=== PATIENT | female | born 1950 | race Caucasian/White ===

== ENCOUNTER 2020-08-29 23:18 | Emergency (ER) | payer MEDICARE, SELFPAY ==
[2020-08-29 23:20] VITALS: BP 207/83; PULSE 74; RESP 17; TEMP 37.1; O2SAT 92; BMI 46.9
--- NOTE | 2020-08-29 23:31 | ED_ITS ---
HPI - Fall General: Chief Complaint: Fall Stated Complaint: FALL Time Seen by Provider: 08/29/20 23:29 History of Present Illness: HPI Narrative: Patient is a 69-year-old female who comes to the ED via EMS after having a fall. Patient says she was walking in h er house and tripped over some carpet. She fell and her right knee hit the ground and she caught herself with her hands. Denies any head injury, loss of consciousness or headache. Denies any use of blood thinners. She has a skin tear on her forearm. Right knee some swelling and bruising present. She had pain initially after the fall, but only has very mild pain in right knee currently. She did not take any Tylenol or ibuprofen before coming to the ED. She says she is able to bend knee without any pain. She is up-to-date on her tetanus and got within the last year. Patient did say she has chronic right knee problems and is going to see an orthopedic doctor to get a steroid injection into right knee in the next couple days. Associated symptoms-after fall: Denies abdominal pain, chest pain, headache(s), hematuria or neck pain Review of Systems Const: Denies: fever(s), chills or fatigue Eyes: Denies: change in vision or eye discomfort ENMT: Denies: throat pain, odynophagia, nasal discharge or nasal congestion Card: Denies: chest pain, palpitations, edema, swelling of feet/ankles, dyspnea on exertion or orthopnea Resp: Denies: dyspnea, productive cough or non-productive cough GI: Denies: abdominal pain, nausea, vomiting, diarrhea, constipation or hematochezia : Denies: flank pain, dysuria or hematuria Musc: Reports: extremity pain (mild right knee pain) and extremity swelling (right knee); Denies: neck pain or back pain Skin/Breast: Reports: new lesions (skin tear on right forearm); Denies: rash Neuro: Denies: headache(s), numbness in extremities or weakness in extremities PFSH ED PFSH: Family History Other Cancer Social History Smoking and tobacco status: former smoker Quit status (tobacco): has quit using tobacco Alcohol intake: current Alcohol intake frequency: holidays/special occasions only History of recent travel: No Current gender identity: Female Female Reproductive History: Spontaneous abortions: No Physical Exam Const: COMMON NORMALS: no acute distress, patient oriented x3, healthy appearing and alert GENERAL APPEARANCE: cooperative and comfortable HENMT: COMMON NORMALS: normocephalic HEAD & SCALP: normocephalic MOUTH: Normal oral and palatal mucosa present THROAT: posterior oropharynx normal and uvula midline Eye: COMMON NORMALS: Equal, round and reactive pupils present PUPIL: Yes Equal, round and reactive pupils present Neck/C-Spine: COMMON NORMALS: supple GENERAL: Yes normal visual inspection Resp: COMMON NORMALS: normal respiratory effort, No retractions, No use of accessory muscles and clear to auscultation bilaterally AUSCULTATION: clear to auscultation bilaterally Cardio: COMMON NORMALS: regular rate, regular rhythm, S1 normal heart sound present, S2 normal heart sound present, No gallops present (Cardio), No clicks present (Cardio), No murmurs present (Cardio) and Peripheral pulses 2+ throughout RATE: regular rate RHYTHM: regular rhythm HEART SOUNDS: S1 normal heart sound present and S2 normal heart sound present PERIPHERAL PULSES: Peripheral pulses 2+ throughout GI: COMMON NORMALS: Normal to inspection, nondistended, normoactive bowel sounds present, Soft to palpation, non-tender and no masses PALPATION: Yes Soft to palpation : COMMON NORMALS: Yes no CVA tenderness BLADDER/KIDNEY EXAM: Yes no CVA tenderness Back/Pelvis: COMMON NORMALS: no CVA tenderness Extremity: NARRATIVE EXTREMITY EXAM: Patient has mild edema over right knee along with ecchymosis. Mild tenderness upon palpation as well over anterior aspect of right knee. Range of motion full. Neurovascular intact. Pedal pulse 2+. GENERAL: Yes normal exam except as noted Neuro: COMMON NORMALS: patient oriented x3 and moves all extremities SENSORIUM/ORIENTATION: Yes alert Skin: NARRATIVE SKIN EXAM: Patient has a superficial skin tear on right forearm that is not actively bleeding. Course Vital Signs: Vital signs: Vital Signs Temperature 98.8 F 08/29/20 23:20 Pulse Rate 74 08/29/20 23:20 Respiratory Rate 17 08/29/20 23:20 Blood Pressure 207/83 08/29/20 23:20 Pulse Oximetry 92 08/29/20 23:20 MDM - Fall MDM Narrative: Medical decision making narrative: Patient is a 69-year-old female comes to the ED via EMS after having a fall. Patient has a history of chronic right knee pain and is currently working with an orthopedic doctor to get some injections in her right knee within the next week. She is complaining of having some right knee pain and a skin tear to her right forearm. Denies any head trauma or loss of consciousness. Patient is not on any blood thinners. Physical exam shows some tenderness, ecchymosis and swelling around the right knee. Full range of motion without pain. Neurovascular tact. X-ray of right knee showed no acute fractures or findings, but did notate some chronic patellar enthesophytes. Patient was diagnosed with a contusion and ecchymosis of the right knee and skin tear of the right forearm. Skin tear was irrigated extensively with normal saline, bacitracin and bandage was placed. She was told to rest, ice and elevate right knee. Take Tylenol or ibuprofen for pain. Return ED precautions given. Follow-up with PCP in 7 to 10 days. Patient understood and agreed with plan. Imaging Data^: Xray Ortho: Attestation: I personally reviewed and interpreted this imaging study as follows: Radiologist's impression: [place] [address] XRay Report Signed Patient: Carli Brown Unit #: [id number] : [id number] Age/Sex: 69 / F ADM Date: 08/29/20 Loc: ER Room/Bed: Attending Dr: Ordering Provider/Ordering MD: Erasto Padron Date of Service: 08/29/20 Procedure(s): XR knee RT 3V* [id number] Accession Number(s): [id number] Report Number: [id number] PROCEDURE INFORMATION: Exam: XR Right Knee Exam date and time: 08/29/2020 11:54 PM Age: 69 years old Clinical indication: Injury or trauma; Fall; Blunt trauma; Knee; Right; Additional info: Fall and hit knee-bruising TECHNIQUE: Imaging protocol: XR Right knee. Views: 3 views. COMPARISON: No relevant prior studies available. FINDINGS: No acute fracture or dislocation is demonstrated. There are prominent patellar enthesophytes anteriorly, extending superiorly and inferiorly. XR/XR knee RT 3V* [id number] IMPRESSION: No acute osseous abnormality is demonstrated. There are prominent patellar enthesophytes anteriorly, extending superiorly and inferiorly. Dictated By: Roslyn Wheeler MD Signed By: Roslyn Wheeler MD Signed Date/Time: 08/30/2015 DD/ Discharge Plan Discharge Patient Disposition: Home Clinical Impression: Ecchymosis, Skin tear Contusion Qualifiers: Encounter type: initial encounter Contusion area: knee Laterality: right Qualified Code(s): S80.01XA - Contusion of right knee, initial encounter Condition: Stable Prescriptions: No Action Januvia 100 mg tablet 100 mg PO DAILY RF: 0 fluticasone propion-salmeterol [Advair Diskus] 500-50 mcg/dose blister with device 1 inh INHALATION BID RF: 0 ibuprofen 800 mg tablet 800 mg PO Q8H RF: 0 Spiriva Respimat 1.25 mcg/actuation mist 2 puff INHALATION DAILY RF: 0 benazepril-hydrochlorothiazide 20-25 mg tablet 1 tab PO DAILY RF: 0 furosemide 20 mg tablet 20 mg PO DAILY Qty: 3 RF: 0 Discharge Orders: Discharge Order (Routine); Ordered 08/30/20 Ordered By: Erasto Padron Discharge Diet: Regular Discharge Activity: Increase activity as tolerated Patient Instructions: Contusion in Adults (ED) Activity Restrictions/Additional Instructions: Follow-up with medical provider as directed in 7-10 days. Take ibuprofen for pain and inflammation. Rest, ice and elevate right knee. Clean, apply triple antibiotic ointment and bandage skin tear on right forearm daily. Return to the ER or your medical provider if condition worsens. Please read and understand discharge instructions. If any questions, please ask. Discharge Date/Time: 08/30/20 00:41 Coding Level of Care Code ED Finishing And Shipping Supervisor for Phillip Fwd Exam Comprehensive
--- NOTE | 2020-08-29 23:36 | XRR_ITS ---
PROCEDURE INFORMATION: Exam: XR Right Knee Exam date and time: 08/29/2020 11:54 PM Age: 69 years old Clinical indication: Injury or trauma; Fall; Blunt trauma; Knee; Right; Additional info: Fall and hit knee-bruising TECHNIQUE: Imaging protocol: XR Right knee. Views: 3 views. COMPARISON: No relevant prior studies available. FINDINGS: No acute fracture or dislocation is demonstrated. There are prominent patellar enthesophytes anteriorly, extending superiorly and inferiorly. XR/XR knee RT 3V* [id number] IMPRESSION: No acute osseous abnormality is demonstrated. There are prominent patellar enthesophytes anteriorly, extending superiorly and inferiorly.
[2020-08-29] MEDS: ibuprofen 600 mg Tablet PO (23:44)
== END 2020-08-30 00:41 | disposition home or self-care (01) ==
PROVIDERS: Emergency Provider Physician Assistant
DX: S80.01XA Contusion of right knee, initial encounter (principal); R58 Hemorrhage, not elsewhere classified; S51.811A Laceration without foreign body of right forearm, initial encounter; Z87.891 Personal history of nicotine dependence; W18.09XA Striking against other object with subsequent fall, initial encounter
CPT/HCPCS: 12345; 73562; 99281; 99283

== ENCOUNTER 2022-01-21 22:44 | Observation (INO) | payer MEDICARE, SELFPAY ==
[2022-01-21 22:44] VITALS: BP 178/68; PULSE 75; RESP 18; TEMP 36.7; O2SAT 96; BMI 51.8
--- NOTE | 2022-01-21 23:00 | XRR_ITS ---
PROCEDURE INFORMATION: Exam: XR Right Shoulder Exam date and time: 01/21/2022 11:00 PM Age: 71 years old Clinical indication: Injury or trauma; Fall; Blunt trauma (contusions or hematomas); Shoulder; Right; Additional info: Fall inj TECHNIQUE: Imaging protocol: XR Right shoulder. Views: 2 or more views. COMPARISON: No relevant prior studies available. FINDINGS: Bones/joints: Mild right acromioclavicular arthropathy. Nondisplaced oblique fracture of the proximal humeral shaft versus overlying fat plane. CT may be helpful for complete evaluation. Soft tissues: See Bones/joints finding. XR/XR shoulder RT min 2V* [id number] IMPRESSION: Nondisplaced oblique fracture of the proximal humeral shaft versus overlying fat plane. CT may be helpful for complete evaluation.
--- NOTE | 2022-01-21 23:00 | CTR_ITS ---
PROCEDURE INFORMATION: Exam: CT Head Without Contrast Exam date and time: 01/21/2022 11:00 PM Age: 71 years old Clinical indication: Injury or trauma; Fall; Blunt trauma (contusions or hematomas); Without loss of consciousness; Patient HX: Tripped on rug while walking; Additional info: Fall head inj TECHNIQUE: Imaging protocol: Computed tomography of the head without contrast. Radiation optimization: All CT scans at this facility use at least one of these dose optimization techniques: automated exposure control; mA and/or kV adjustment per patient size (includes targeted exams where dose is matched to clinical indication); or iterative reconstruction. COMPARISON: No relevant prior studies available. RADIATION DOSE METRICS: Total DLP (mGy-cm): 987.04 FINDINGS: Brain: Normal. No hemorrhage. Unremarkable white matter. No mass effect. Cerebral ventricles: No ventriculomegaly. Paranasal sinuses: Visualized sinuses are unremarkable. No fluid levels. Mastoid air cells: Visualized mastoid air cells are well aerated. Vasculature: Severe calcified intracranial atherosclerotic vessel disease. Bones/joints: Unremarkable. No acute fracture. Soft tissues: Unremarkable. CT/CT head wo con* [id number] IMPRESSION: No acute intracranial findings.
--- NOTE | 2022-01-21 23:00 | XRR_ITS ---
PROCEDURE INFORMATION: Exam: XR Left Knee Exam date and time: 01/21/2022 11:00 PM Age: 71 years old Clinical indication: Injury or trauma; Fall; Blunt trauma and laceration; Left; Patella or knee; Without foreign body; Additional info: Fall injury with lac TECHNIQUE: Imaging protocol: XR Left knee. Views: 3 views. COMPARISON: No relevant prior studies available. FINDINGS: Bones/joints: Normal. Soft tissues: Prominent soft tissue emphysema over the anterior medial knee and calf consistent with laceration/penetrating trauma. XR/XR knee LT 3V* [id number] IMPRESSION: Prominent soft tissue emphysema over the anterior medial knee and calf consistent with laceration/penetrating trauma.
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
[2022-01-21 23:10] VITALS: RESP 18; O2SAT 96
[2022-01-21] MEDS: fentaNYL 50 mcg/mL INJ 2mL IVP (23:10)
[2022-01-21 23:45] VITALS: RESP 18
[2022-01-21] MEDS: HYDROmorphone 1 mg/mL INJ 1 mL IVP (23:45)
[2022-01-22] VITALS (16 sets, daily range): BP systolic 123–181; BP diastolic 37–78; PULSE 70–88; RESP 14–22; TEMP 36.6–37; O2SAT 93–99; BMI 52.8
[2022-01-22] MEDS: neomycin-poly-bacitracin oint 0.9 gm Pkt 1 APPLIC TOPICAL (01:25)
--- NOTE | 2022-01-22 02:07 | XRR_ITS ---
PROCEDURE INFORMATION: Exam: XR Chest Exam date and time: 01/22/2022 2:07 AM Age: 71 years old Clinical indication: Injury or trauma; Fall; Blunt trauma (contusions or hematomas) TECHNIQUE: Imaging protocol: XR of the chest. Views: 1 view. COMPARISON: CR (CHEST, ) 01/21/2022 11:08 PM FINDINGS: Lungs: Unremarkable. No consolidation. Pleural spaces: Unremarkable. No pleural effusion. No pneumothorax. Heart/Mediastinum: Unremarkable. No cardiomegaly. Bones/joints: Moderate thoracic spondylosis. XR/XR chest 1V portable [id number] IMPRESSION: No acute findings.
--- NOTE | 2022-01-22 02:08 | ECG_ITS ---
[facility] Test Date: 2022-01-22 Pat Name: Carli Brown Department: Room: Gender: Female Building Code Administrator: : 1950 Requested By: Sam Maurer Order Number: [id number] Rosalie MD: Kavitha Mao M.D. Measurements Intervals [place] Rate: 76 P: 72 [place]: 167 QRS: 86 QRSD: 151 T: 45 QT: 430 QTc: 485 Interpretive Statements SINUS RHYTHM RIGHT BUNDLE BRANCH BLOCK [120+ ms QRS DURATION, UPRIGHT V1, 40+ ms S IN I/aVL/V4/V5/V6] No previous ECG available for comparison Electronically Signed On 01-22-2022 16:11:17 PRESIDENT by Kavitha Mao M.D. [id number]
[2022-01-22 02:42] LABS: Basophils # 0.1 10^3/uL (0.0-0.1); Basophils % 0.7 %; Eosinophils # 0.1 10^3/uL (0.0-0.8); Eosinophils % 0.4 %; Hematocrit 41.4 % (37.0-47.0); Hemoglobin 13.3 g/dL (11.5-15.3); Lymphocytes # 0.9 10^3/uL (0.8-4.8); Lymphocytes % 6.6 %; Mean Corpuscular HGB Conc 32.1 g/dL (30.0-36.0); Mean Corpuscular Hemoglobin 32.6 pg (28.0-34.0); Mean Corpuscular Volume 101.5 fl (81-99); Mean Platelet Volume 11.8 fL (7.4-10.4); Monocytes # 0.9 10^3/uL (0.2-0.9); Monocytes % 6.8 %; Neutrophils # 11.53 10^3/uL (1.8-7.7); Nucleated Red Blood Cells % 0 %; Platelet Count 185 10^3/cmm (130-400); Red Blood Count 4.08 10^6/uL (4.1-5.3); Red Cell Distribution Width 13.1 % (12.1-15.1); White Blood Count 13.6 10^3/uL (4.0-10.0)
[2022-01-22 02:59] LABS: Alanine Aminotransferase 21 U/L (0-33); Albumin Level 4.2 g/dL (3.5-5.2); Alkaline Phosphatase 66 IU/L (35-105); Aspartate Amino Transferase 21 U/L (0-32); Blood Urea Nitrogen 28 mg/dL (8-23); C Reactive Protein 11.1 mg/L (0.0-4.9); Calcium 8.9 mg/dL (8.5-10.5); Carbon Dioxide 32 mmol/L (22-29); Chloride 96 mmol/L (98-107); Creatine Phosphokinase 187 U/L (26-192); Glucose 245 mg/dL (65-115); Osmolality Calculated 302 mOsm/kg (285-295); Sodium 139 mmol/L (136-145); Total Bilirubin 0.4 mg/dL (0.15-1.2); Total Protein 7.2 g/dL (6.6-8.7)
[2022-01-22 03:02] LABS: Slide Review Slide Review Perform
[2022-01-22 03:06] LABS: Procalcitonin 0.11 ng/mL (0-0.5)
[2022-01-22] MEDS: HYDROmorphone 1 mg/mL INJ 1 mL IVP (03:35)
--- NOTE | 2022-01-22 05:37 | P.HP_ITS ---
Providers/Chief Complaint Admitting Physician: Melonie Gale MD Chief Complaint: fall r shoulder pain History of Present Illness Carli Brown is a 71 year old female with HTN, DM, COPD baseline 02 requirement 2-3lpm presenting to the ER with mechanical fall after her leg got caught in a rug as she was running to take nursing home at home from severe weather. She currently has a lacertaion over her left knee which has been sutured in the ER and also a right shoulder fracture. Reports head injury as well, however no reported LOC, seizures, vomiting, nausea. X rays show Nondisplaced oblique fracture of the proximal humeral shaft. Patient is currently i pain which is limiting her mobility and she does not feel safe returning home at this point to care for herself. Denies any chest pain, dyspnea, palpitations. Review of Systems General: Reports: 10 or more systems reviewed and unremarkable except in HPI and below Const: Denies: fever(s), chills or body aches Eyes: Denies: change in vision, blurry vision or photophobia ENMT: Reports: hoarseness; Denies: throat pain, enlarged tonsils, odynophagia or nasal congestion Card: Denies: chest pain, palpitations, irregular heart rhythm, edema, swelling of feet/ankles, lightheadedness, pre-syncope, dyspnea on exertion or orthopnea Resp: Denies: dyspnea, productive cough, non-productive cough, wheezing, stridor, pain on inspiration, change in phlegm color, hemoptysis or chest congestion GI: Denies: abdominal pain, nausea, vomiting, hematemesis, coffee ground emesis, dysphagia, heartburn, diarrhea, constipation, GI cramping, change in stool character, hematochezia or melena : Denies: flank pain, difficulty voiding, dysuria, urinary frequency, urinary urgency, urinary hesitancy or hematuria Musc: Denies: neck pain, back pain, extremity pain, joint swelling, joint warmth or deformity Neuro: Denies: headache(s), numbness in extremities, weakness in extremities, sensory changes, difficulty walking, frequent falls, dizziness, vertigo, behavioral changes, Slurred speech present or seizure-like activity Psych: Denies: anxiety, depression, suicidal ideation or homicidal ideation Endo: Denies: polyuria, polydipsia, tired all the time, cold intolerance or hot flashes Kenny/Lymph: Denies: easy bruising or easy bleeding Medications/Allergies Home Medications Medication Instructions Recorded Confirmed Last Taken Type benazepril 20 1 tab PO DAILY 06/26/20 11/27/21 Unknown History mg-hydrochlorothiazide 25 mg tablet fluticasone 500 mcg-salmeterol 50 1 inh INHALATION BID 06/26/20 11/27/21 Unknown History mcg/dose blistr powdr for inhalation (Advair Diskus) ibuprofen 800 mg tablet 800 mg PO Q8H 06/26/20 11/27/21 Unknown History sitagliptin 100 mg tablet (Januvia) 100 mg PO DAILY 06/26/20 11/27/21 Unknown History tiotropium bromide 1.25 2 puff INHALATION DAILY 06/26/20 11/27/21 Unknown History mcg/actuation mist for inhalation (Spiriva Respimat) aspirin 81 mg tablet,delayed 81 mg PO DAILY 11/27/21 11/27/21 Unknown History release (Adult Aspirin Regimen) furosemide 20 mg tablet 20 mg PO DAILY #5 tab 11/27/21 11/27/21 Unknown Rx metformin 500 mg tablet 500 mg PO BID 11/27/21 11/27/21 Unknown History omeprazole 20 mg delayed 20 mg PO DAILY #30 tab 11/27/21 11/27/21 Unknown Rx release,disintegrating tablet simvastatin 10 mg tablet 10 mg PO DAILY 11/27/21 11/27/21 Unknown History Allergies Allergy/AdvReac Type Severity Reaction Status Date / Time No Known Allergies Allergy Verified 11/27/21 10:49 PFSH Acute PFSH: Medical History Benign essential HTN COPD (chronic obstructive pulmonary disease) Type 2 diabetes mellitus Family History Other Cancer Social History Smoking and tobacco status: former smoker Quit status (tobacco): has quit using tobacco Alcohol intake: current Alcohol intake frequency: holidays/special occasions only History of recent travel: No Current gender identity: Female Female Reproductive History: Spontaneous abortions: No Vitals/I&O/Wt Last Vital Signs Temp 98.1 F 01/22/22 04:23 Pulse 76 01/22/22 04:23 Resp 16 01/22/22 04:23 BP 142/78 01/22/22 04:23 Pulse Ox 95 01/22/22 04:23 01/21/22 01/21/22 01/22/22 14:59 22:59 06:59 Intake Total 0 / 0 Output Total 0 / 0 Balance 0 / 0 Weight last 48 hrs Weight 139.57 kg Weight 136.985 kg Physical Exam Narrative: GEN: Awake, alert and oriented, no acute distress CVS: S1S2 N RS: CTA B/L Abd: Soft, nt/nd , bs+ PIECE MAKER: no focal neuro deficits EXT: Right arm in sling, left knee with dressing in place. Data : 01/22/22 02:35 01/22/22 02:35 Other Labs: Radiology Impressions Head CT 01/21/22 23:00 IMPRESSION: No acute intracranial findings. Knee X-Ray 01/21/22 23:00 IMPRESSION: Prominent soft tissue emphysema over the anterior medial knee and calf consistent with laceration/penetrating trauma. Shoulder X-Ray 01/21/22 23:00 IMPRESSION: Nondisplaced oblique fracture of the proximal humeral shaft versus overlying fat plane. CT may be helpful for complete evaluation. Chest X-Ray 01/22/22 02:07 IMPRESSION: No acute findings. Laboratory Results WBC 13.6 10^3/uL (4.0-10.0) H 01/22/22 02:35 RBC 4.08 10^6/uL (4.1-5.3) L 01/22/22 02:35 Hgb 13.3 g/dL (11.5-15.3) 01/22/22 02:35 Hct 41.4 % (37.0-47.0) 01/22/22 02:35 MCV 101.5 fl (81-99) H 01/22/22 02:35 MCH 32.6 pg (28.0-34.0) 01/22/22 02:35 MCHC 32.1 g/dL (30.0-36.0) 01/22/22 02:35 RDW 13.1 % (12.1-15.1) 01/22/22 02:35 Plt Count 185 10^3/cmm (130-400) 01/22/22 02:35 MPV 11.8 fL (7.4-10.4) H 01/22/22 02:35 Neut % (Auto) 85.0 % 01/22/22 02:35 Lymph % (Auto) 6.6 % 01/22/22 02:35 [place] % (Auto) 6.8 % 01/22/22 02:35 Eos % (Auto) 0.4 % 01/22/22 02:35 Baso % (Auto) 0.7 % 01/22/22 02:35 Neut # (Auto) 11.53 10^3/uL (1.8-7.7) H 01/22/22 02:35 Lymph # (Auto) 0.9 10^3/uL (0.8-4.8) 01/22/22 02:35 [place] # (Auto) 0.9 10^3/uL (0.2-0.9) 01/22/22 02:35 Eos # (Auto) 0.1 10^3/uL (0.0-0.8) 01/22/22 02:35 Baso # (Auto) 0.1 10^3/uL (0.0-0.1) 01/22/22 02:35 Nucleated RBC % (auto) 0 % 01/22/22 02:35 Nucleated RBCs # 0.0 /100WBC 01/22/22 02:35 Sodium 139 mmol/L (136-145) 01/22/22 02:35 Potassium 4.0 mmol/L (3.5-5.1) 01/22/22 02:35 Chloride 96 mmol/L (98-107) L 01/22/22 02:35 Carbon Dioxide 32 mmol/L (22-29) H 01/22/22 02:35 Anion Gap 15.0 (5-19) 01/22/22 02:35 BUN 28 mg/dL (8-23) H 01/22/22 02:35 Creatinine 0.7 mg/dL (0.5-0.9) 01/22/22 02:35 GFR Calculation Not Reportable 01/22/22 02:35 Glucose 245 mg/dL (65-115) H 01/22/22 02:35 Calculated Osmolality 302 mOsm/kg (285-295) H 01/22/22 02:35 Calcium 8.9 mg/dL (8.5-10.5) 01/22/22 02:35 Total Bilirubin 0.4 mg/dL (0.15-1.2) 01/22/22 02:35 AST 21 U/L (0-32) 01/22/22 02:35 ALT 21 U/L (0-33) 01/22/22 02:35 Alkaline Phosphatase 66 IU/L (35-105) 01/22/22 02:35 Creatine Kinase 187 U/L (26-192) 01/22/22 02:35 C-Reactive Protein 11.1 mg/L (0.0-4.9) H 01/22/22 02:35 Total Protein 7.2 g/dL (6.6-8.7) 01/22/22 02:35 Albumin 4.2 g/dL (3.5-5.2) 01/22/22 02:35 Globulin 3.0 g/dL (1.3-4.6) 01/22/22 02:35 Procalcitonin 0.11 ng/mL (0-0.5) 01/22/22 02:35 A&P Assessment and plan (1) Humerus surgical neck fracture: Status: Acute (2) Type 2 diabetes mellitus: Status: Acute (3) Knee laceration: Status: Acute Plan 71F presenting with mechanical fall at home , found to have fracture of the humerus and left knee laceration which has been sutured in the ER. Arm sling has been placed in the ER Reported head injury however CT head without any acute intracranial findings Currently patient is in significant pain, required fentanyl administration in the ER. Pain control with percocet, prn morphine and pen NSAIDs for now. Carfeul use of NSAIDs given Age >70 yrs. Currently does not wish to get out of bed as feels too weak from acute events. Review of notes hows prior mechanical falls at home in 2020 additionally PT/OT assessment for safe discharge and disposition planning COPD, not currently in exacerbation, duonebs q6h scheduled and budesonide 0.5mg BID inhalation DM, place on ISS Attestations Medical Necessity Statement*: less than 2 midnight stay expected for pain management after acute fracture, therapy assessments Coding Level of Care Code Acute [employer] for [employer] Fwd Diagnoses Humerus surgical neck fracture S42.213A Type 2 diabetes mellitus E11.9 Knee laceration S81.019A
[2022-01-22] MEDS: morphine 4 mg/mL SDV 1 mL 2 MG IVP (06:11)
[2022-01-22 06:12] LABS: Glucose Point of Care 220 mg/dL (70-110)
[2022-01-22] MEDS: atorvastatin 40 mg Tablet 20 MG PO (08:31)
[2022-01-22] MEDS: insulin lispro 100 unit/1 mL SUBCUT ×2 (08:31→12:52)
[2022-01-22] MEDS: pantoprazole DR 40 mg Tablet PO (08:32)
[2022-01-22] MEDS: aspirin 81 mg EC Tablet PO (08:32)
[2022-01-22] MEDS: FUROsemide 20 mg Tablet PO (08:32)
[2022-01-22] MEDS: budesonide 0.5 mg/2 mL Neb INHALATION (09:29)
[2022-01-22] MEDS: ipratropium-albuterol 3 mL Neb INHALATION (09:29)
[2022-01-22] MEDS: oxyCODONE-APAP 5-325 mg Tablet 1 TAB PO (09:50)
[2022-01-22] MEDS: ondansetron 2 mg/ML SDV 2 mL 4 MG IVP (09:53)
[2022-01-22 10:39] LABS: Add Urine Microscopic? NO; Charge for UA Resulting for Rev
[2022-01-22 10:54] LABS: Bilirubin Urine Neg (Negative); Blood Urine Neg (Negative); Glucose Urine UA 2+ (Normal); Ketones Urine Negative (Negative); Leukocyte Esterase Urine Negative (Negative); Nitrate Urine Negative (Negative); Protein Urine Neg (Negative); Urine Appearance Clear (CLEAR); Urine Color Yellow (Yellow); Urobilinogen Urine Norm (Negative); pH Urine 5 (5-7)
[2022-01-22 11:37] LABS: Glucose Point of Care 169 mg/dL (70-110)
--- NOTE | 2022-01-22 12:04 | PC.CHAP ---
Pastoral Care Encounter/Spiritual Assessment Type of Contact [] Declined senior manager quality assurance visit [] Patient/Family/Request visit [] Outpatient visit [] Follow-up visit [] Physician referral [] Code/Alert [x] Routine visit [] Staff referral [] Actively dying [] Patient sleeping [] Family support [] [] Out of room [] Palliative care [] [] Receiving care in room [] Pre-surgical visit [] Trauma [] Long length of stay [] ICU visit [] Other: Relational/Emotional Strength [x] Patient feels connected with others/family/visitors/staff [] Distress [] Loneliness/isolation [] Abandonment Spirituality of Patient [x] Person of Deloris [] Attends Faith of their Deloris [x] Believes in Prayer [] Reads Bible or Restorationist materials [] There are Spiritual issues to be addressed 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 Interventions [x] Prayer [x] Active listening [x] Non-anxious presence []x Spiritual/emotional support [] Crisis/trauma care [] Spiritual counseling [] Bereavement support [] Provided bereavement packet [] Provided Bible/devotional materials [] Provided toy/stuffed animal, coloring book to patient or family member [] Provided Communion [] Anointing/[place] [] Salvation [x] Completed spiritual assessment [] Other: Impact on Illness or Injury [] Angry [] Fearful [] Anxious [] Often cries [] Exhaustion [] Unable to work [] Unable to attend mu-ism [] Unable to walk/stand [] Unable to read [] Unable to drive [] Unable to eat/drink [] Unable to sleep [] Unable to be with family [] Patient intubated [] Other: Summary Time spent with patient
--- NOTE | 2022-01-22 12:17 | P.DS_ITS ---
Discharge Providers Date of Admission: 01/22/22 03:15 Date of Discharge: January 22, 2022 Attending Provider at Admission: Melonie Gale MD Attending Provider at Discharge: Mihai Holguin MD Diagnoses at Discharge Discharge Diagnosis (1) Humerus surgical neck fracture: Status: Acute (2) Type 2 diabetes mellitus: Status: Acute (3) Knee laceration: Status: Acute Reason for Visit Reason for Visit: fall r shoulder pain Brief History: History as per HPI: Carli Brown is a 71 year old female with HTN, DM, COPD baseline 02 requirement 2-3lpm? presenting to the ER with mechanical fall after her leg got caught in a rug as she was running to take long term at home from severe weather. She currently has a lacertaion over her left knee which has been sutured in the ER and also a right shoulder fracture. Reports head injury as well, however no reported LOC, seizures, vomiting, nausea. X rays show Nondisplaced oblique fracture of the proximal humeral shaft. Patient is currently i pain which is limiting her mobility and she does not feel safe returning home at this point to care for herself. Denies any chest pain, dyspnea, palpitations. Hospital Course Hospital Course Patient admitted to the hospital for pain management under observation. She was seen by physical therapy and has been doing better. Her hospitalization was unremarkable. Patient's pain was well controlled. She is been discharged hemodynamically stable condition with advised to follow-up with orthopedics within next 1 week for further evaluation of right humerus fracture. She is also advised to follow-up to the ER and no week to 10 days for urgent care for suture removal. Physical Exam Narrative: GEN: Awake, alert and oriented, no acute distress CVS: S1S2 N RS: CTA B/L Abd: Soft, nt/nd , bs+ CERTIFIED SCRUM MASTER: no focal neuro deficits EXT: Right arm in sling, left knee with dressing in place. Discharge Data Studies Completed and Pending Completed Studies During Hospitalization Category Date Time Status CT head wo con* [id number] Urgent Cat Scan 01/21/22 23:00 Completed XR chest 1V portable [id number] Urgent Exams 01/22/22 02:07 Completed XR knee LT 3V* [id number] Stat Exams 01/21/22 23:00 Completed XR shoulder RT min 2V* [id number] Stat Exams 01/21/22 23:00 Completed Pending at discharge Category Date Time Status Complete Blood Count w/Auto AM LABS Lab 01/23/22 04:00 Ordered Comprehensive Metabolic Panel AM LABS Lab 01/23/22 04:00 Ordered Radiology Impressions Head CT 01/21/22 23:00 IMPRESSION: No acute intracranial findings. Knee X-Ray 01/21/22 23:00 IMPRESSION: Prominent soft tissue emphysema over the anterior medial knee and calf consistent with laceration/penetrating trauma. Shoulder X-Ray 01/21/22 23:00 IMPRESSION: Nondisplaced oblique fracture of the proximal humeral shaft versus overlying fat plane. CT may be helpful for complete evaluation. Chest X-Ray 01/22/22 02:07 IMPRESSION: No acute findings. Laboratory Results WBC 13.6 10^3/uL (4.0-10.0) H 01/22/22 02:35 RBC 4.08 10^6/uL (4.1-5.3) L 01/22/22 02:35 Hgb 13.3 g/dL (11.5-15.3) 01/22/22 02:35 Hct 41.4 % (37.0-47.0) 01/22/22 02:35 MCV 101.5 fl (81-99) H 01/22/22 02:35 MCH 32.6 pg (28.0-34.0) 01/22/22 02:35 MCHC 32.1 g/dL (30.0-36.0) 01/22/22 02:35 RDW 13.1 % (12.1-15.1) 01/22/22 02:35 Plt Count 185 10^3/cmm (130-400) 01/22/22 02:35 MPV 11.8 fL (7.4-10.4) H 01/22/22 02:35 Neut % (Auto) 85.0 % 01/22/22 02:35 Lymph % (Auto) 6.6 % 01/22/22 02:35 [place] % (Auto) 6.8 % 01/22/22 02:35 Eos % (Auto) 0.4 % 01/22/22 02:35 Baso % (Auto) 0.7 % 01/22/22 02:35 Neut # (Auto) 11.53 10^3/uL (1.8-7.7) H 01/22/22 02:35 Lymph # (Auto) 0.9 10^3/uL (0.8-4.8) 01/22/22 02:35 [place] # (Auto) 0.9 10^3/uL (0.2-0.9) 01/22/22 02:35 Eos # (Auto) 0.1 10^3/uL (0.0-0.8) 01/22/22 02:35 Baso # (Auto) 0.1 10^3/uL (0.0-0.1) 01/22/22 02:35 Nucleated RBC % (auto) 0 % 01/22/22 02:35 Nucleated RBCs # 0.0 /100WBC 01/22/22 02:35 Sodium 139 mmol/L (136-145) 01/22/22 02:35 Potassium 4.0 mmol/L (3.5-5.1) 01/22/22 02:35 Chloride 96 mmol/L (98-107) L 01/22/22 02:35 Carbon Dioxide 32 mmol/L (22-29) H 01/22/22 02:35 Anion Gap 15.0 (5-19) 01/22/22 02:35 BUN 28 mg/dL (8-23) H 01/22/22 02:35 Creatinine 0.7 mg/dL (0.5-0.9) 01/22/22 02:35 GFR Calculation Not Reportable 01/22/22 02:35 Glucose 245 mg/dL (65-115) H 01/22/22 02:35 POC Glucose 169 mg/dL (70-110) H 01/22/22 11:04 Calculated Osmolality 302 mOsm/kg (285-295) H 01/22/22 02:35 Calcium 8.9 mg/dL (8.5-10.5) 01/22/22 02:35 Total Bilirubin 0.4 mg/dL (0.15-1.2) 01/22/22 02:35 AST 21 U/L (0-32) 01/22/22 02:35 ALT 21 U/L (0-33) 01/22/22 02:35 Alkaline Phosphatase 66 IU/L (35-105) 01/22/22 02:35 Creatine Kinase 187 U/L (26-192) 01/22/22 02:35 C-Reactive Protein 11.1 mg/L (0.0-4.9) H 01/22/22 02:35 Total Protein 7.2 g/dL (6.6-8.7) 01/22/22 02:35 Albumin 4.2 g/dL (3.5-5.2) 01/22/22 02:35 Globulin 3.0 g/dL (1.3-4.6) 01/22/22 02:35 Procalcitonin 0.11 ng/mL (0-0.5) 01/22/22 02:35 Urine Color Yellow (Yellow) 01/22/22 10:30 Urine Appearance Clear (CLEAR) 01/22/22 10:30 Urine pH 5 (5-7) 01/22/22 10:30 Ur Specific [place] 1.030 (1.005-1.030) 01/22/22 10:30 Urine Protein Neg (Negative) 01/22/22 10:30 Urine Glucose (UA) 2+ (Normal) H 01/22/22 10:30 Urine Ketones Negative (Negative) 01/22/22 10:30 Urine Blood Neg (Negative) 01/22/22 10:30 Urine Nitrate Negative (Negative) 01/22/22 10:30 Urine Bilirubin Neg (Negative) 01/22/22 10:30 Urine Urobilinogen Norm mg/dL (Negative) 01/22/22 10:30 Ur Leukocyte Esterase Negative (Negative) 01/22/22 10:30 Vitals Last Vital Signs Temp 98.6 F 01/22/22 07:51 Pulse 75 01/22/22 09:38 Resp 18 01/22/22 09:50 BP 123/71 01/22/22 07:51 Pulse Ox 98 01/22/22 10:24 Discharge Plan Discharge Patient Disposition: Home Condition: Stable Prescriptions: New tramadol 50 mg tablet 50 mg PO Q8H PRN (Reason: pain) Qty: 14 0RF Continued Januvia 100 mg tablet 100 mg PO DAILY 0RF fluticasone propion-salmeterol [Advair Diskus] 500-50 mcg/dose blister with device 1 inh INHALATION BID 0RF ibuprofen 800 mg tablet 800 mg PO Q8H PRN (Reason: Pain) 0RF Spiriva Respimat 1.25 mcg/actuation mist 2 puff INHALATION DAILY 0RF benazepril-hydrochlorothiazide 20-25 mg tablet 1 tab PO DAILY 0RF metformin 500 mg tablet 500 mg PO BID 0RF simvastatin 10 mg tablet 10 mg PO QPM 0RF aspirin [Adult Aspirin Regimen] 81 mg tablet,delayed release (DR/EC) 81 mg PO DAILY 0RF azithromycin 250 mg tablet 250 mg PO DAILY 0RF multivitamin Tablet 1 tab PO DAILY 0RF albuterol sulfate 2.5 mg /3 mL (0.083 %) solution for nebulization 2.5 mg inhalation Q6H PRN (Reason: Shortness Of Breath) 0RF Vitamin C 500 mg Tablet 500 mg PO DAILY 0RF albuterol sulfate 90 mcg/actuation HFA aerosol inhaler 2 puff inhalation QID PRN (Reason: Shortness Of Breath) 0RF Elderberry 200 mg Capsule 200 mg PO DAILY 0RF Vitamin B-12 1 tab PO DAILY 0RF Discharge Orders: Discharge Order (Routine); Ordered 01/22/22 Ordered By: Mihai Holguin Referrals: Dilan Kahn MD [Physician] - 7-10 days Discharge Diet: Cardiac and Diabetic Discharge Activity: Resume usual activity, Increase activity as tolerated and Limit activity as instructed Patient Instructions: Opioid Safety Activity Restrictions/Additional Instructions: Please follow-up with orthopedics office within next 1 week to 10 days. Please follow-up in the ER for urgent care for suture removal within next 1 week to 10 days. Please limit your activity as described in detail. Discharge Attestations Time Spent in Discharge Care*: greater than 30 min Specific Discharge Activities: educating patient, discussing with pcp/other providers, discussing with welfare case worker/social workers/dc planners, documenting/other paperwork and evaluating patient/reviewing data Status at Discharge: Cognitive status at discharge: cognitively intact , Behavioral status at discharge: cooperative , Functional status at discharge: independent ambulation , Overall status at discharge: patient is progressing back to baseline Quality Metrics Clinical Quality Measures [ No reported AMI, CVA or VTE this stay] Coding Level of Care Code Acute [facility] DC note Diagnoses Humerus surgical neck fracture S42.213A Type 2 diabetes mellitus E11.9 Knee laceration S81.019A
[2022-01-22] MEDS: ketorolac 10 mg Tablet PO (12:52)
--- NOTE | 2022-01-22 14:39 | PC.NURSE ---
Discharge teaching and education given to patient and significant other, all questions were answered at this time. IV discontinued. Medications sent to patient preferred pharmacy. Belongings were accounted for. Vitals stable. Patient is too discharge home.
== END 2022-01-22 15:38 | disposition home or self-care (01) ==
LOC: ER 01-22 02:48 → MEDSURG 01-22 03:33
PROVIDERS: Admitting Provider Student in an Organized Health Care Education/Training Program; Emergency Provider Emergency Medicine; Visit Provider Student in an Organized Health Care Education/Training Program
DX: S42.212A Unspecified displaced fracture of surgical neck of left humerus, initial encounter for closed fracture (principal); S81.019A Laceration without foreign body, unspecified knee, initial encounter; W19.XXXA Unspecified fall, initial encounter; E11.9 Type 2 diabetes mellitus without complications; I10 Essential (primary) hypertension; J44.9 Chronic obstructive pulmonary disease, unspecified; Z79.82 Long term (current) use of aspirin; Z79.84 Long term (current) use of oral hypoglycemic drugs; Z87.891 Personal history of nicotine dependence
CPT/HCPCS: 12034; 36416; 70450; 71045; 73030; 73562; 80053; 81003; 82550; 82962; 84145; 85025; 86140; 93005; 94640; 94664; 96374; 96375; 96376; 97110; 97161; 97165; 97530; 99285; G0378; J1170; J1815; J2270; J2405; J3010; J7626

== ENCOUNTER → 2022-02-21 14:21 | Outpatient (BNVA) | payer MEDICARE, SELFPAY | PROVIDERS: Visit Provider Orthopaedic Surgery | DX: S42.201A Unspecified fracture of upper end of right humerus, initial encounter for closed fracture (principal); Y93.02 Activity, running; W19.XXXA Unspecified fall, initial encounter; Z87.891 Personal history of nicotine dependence | CPT/HCPCS: 23600; 73030; 99203 ==

== ENCOUNTER 2022-03-17 10:49 | Inpatient (IN) | payer MEDICARE, SELFPAY ==
[2022-03-17] VITALS (11 sets, daily range): BP systolic 148–193; BP diastolic 68–103; PULSE 74–92; RESP 16–24; TEMP 36.1–36.9; O2SAT 90–99; BMI 54.6
--- NOTE | 2022-03-17 11:03 | XRR_ITS ---
PROCEDURE INFORMATION: Exam: XR Chest Exam date and time: 03/17/2022 12:07 PM Age: 71 years old Clinical indication: Dyspnea TECHNIQUE: Imaging protocol: XR of the chest. Views: 1 view. COMPARISON: CR XR chest 1V portable [id number] 01/22/2022 2:49 AM FINDINGS: Lungs: Unremarkable. No consolidation. Pleural spaces: Unremarkable. No pleural effusion. No pneumothorax. Heart/Mediastinum: Unremarkable. No cardiomegaly. Bones/joints: Unremarkable. Similar findings seen comparing to prior examination XR/XR chest 1V portable [id number] IMPRESSION: No acute findings.
--- NOTE | 2022-03-17 11:04 | ECG_ITS ---
[facility] Test Date: 2022-03-17 Pat Name: Carli Brown Department: Room: Gender: Female Division Manager: : 1950 Requested By: Howard Butler Order Number: [id number] Reading MD: Jem Renner M.D. Measurements Intervals [place] Rate: 77 P: 58 TN: 161 QRS: 79 QRSD: 158 T: 5 QT: 439 QTc: 500 Interpretive Statements SINUS RHYTHM RIGHT BUNDLE BRANCH BLOCK [120+ ms QRS DURATION, UPRIGHT V1, 40+ ms S IN I/aVL/V4/V5/V6] Compared to ECG 01/22/2022 02:19:48 No significant changes Electronically Signed On 03-18-2022 8:12:30 CDT by Jem Renner M.D. [email or web address] [id number]
--- NOTE | 2022-03-17 11:25 | W.ED.GENADLT ---
HPI - General Adult General: Chief complaint: Shortness of Breath/Dyspnea Stated complaint: Dr wanted her to be seen, sob, an enlarged heart Time Seen by Provider: 03/17/22 11:02 History of Present Illness: Patient is a 71-year-old female with history of COPD, CHF on 2L NC at baseline, hypertension, diabetes who presents the emergency room for evaluation of worsening dyspnea for the last 4 days. Patient tells me that she sustained a surgical neck fracture of the humerus on 01/21/2022 and was discharged home on 01/22/2022. Patient says that the fracture has not been surgically repaired but has been followed closely by Dr. Kahn. Patient also has underwent left knee replacement 2 months prior. Over the last 3 days, patient reports increased shortness of breath worse with exertion. Patient now requires 4 L of oxygen that is new from 2 L. Patient is on daily 2 mg of Bumex and 25 mg of spironolactone and is compliant with her medication for CHF. Patient denies any chest pain, cough, fever/chills, sore throat, abdominal complaints, nausea/vomiting, diarrhea, melena/hematochezia. Patient has no urinary complaints. Onset:3-4 days ago Duration:ongoing Location:home Severity:moderate Associated symptoms: Reports dyspnea; Deny chest pain, nausea, rash, palpitations or vomiting Review of Systems Const: Denies: fever(s) or chills Eyes: Denies: change in vision ENMT: Denies: mouth pain Card: Denies: chest pain or palpitations Resp: Reports: dyspnea; Denies: non-productive cough GI: Denies: abdominal pain, nausea, vomiting or diarrhea : Denies: dysuria Musc: Denies: extremity pain Skin/Breast: Denies: rash or new lesions Neuro: Denies: weakness in extremities Psych: Reports: other (Normal mood) Kenny/Lymph: Denies: easy bruising PFSH ED PFSH: Medical History Benign essential HTN Cellulitis of left knee COPD (chronic obstructive pulmonary disease) Type 2 diabetes mellitus Family History Other Cancer Social History Smoking and tobacco status: former smoker Quit status (tobacco): has quit using tobacco Alcohol intake: current Alcohol intake frequency: holidays/special occasions only History of recent travel: No Current gender identity: Female Physical Exam Const: COMMON NORMALS: alert HENMT: COMMON NORMALS: atraumatic HEAD & SCALP: atraumatic MOUTH: moist mucous membranes not abnormal Eye: COMMON NORMALS: EOMs intact bilaterally and conjunctivae normal CONJUNCTIVA: Yes conjunctivae normal Neck/C-Spine: COMMON NORMALS: full ROM and supple Resp: COMMON NORMALS: normal respiratory effort OTHER: + Coarse breath sounds bilaterally Cardio: COMMON NORMALS: regular rate RATE: regular rate GI: COMMON NORMALS: Soft to palpation and non-tender PALPATION: Yes Soft to palpation OTHER: No focal TTP. NO guarding rebound, guarding, rigidity. No CVA tenderness to percussion. Neg Montanez/Neg McBurney's point tenderness, no suprabupic tenderness to palpation. Extremity: OTHER: + Right arm in sling with moderate pain to range of motion, left knee surgical scar dry clean intact healing appropriately 2+ lower extremity b/l Neuro: SENSORIUM/ORIENTATION: Yes alert MOTOR EXAM: No Abnormal motor strength present and Other motor observations present (no focal motor deficits) Psych: COMMON NORMALS: speech normal SPEECH: Yes normal speech MOOD & AFFECT: Yes euthymic mood Course Vital Signs: Vital signs: Vital Signs Temperature 97.0 F L 03/17/22 10:55 Pulse Rate 76 03/17/22 14:14 Respiratory Rate 18 03/17/22 14:14 Blood Pressure 148/72 03/17/22 14:14 Pulse Oximetry 96 03/17/22 14:14 [facility] - General Adult Medical Decision Making 71-year-old female with history of CHF, COPD on 2 L of oxygen, diabetes, hypertension presenting to the emergency room for evaluation of cute onset of dyspnea requiring now 4 L of oxygen up from 2L. On physical exam, patient is noted to be satting at 93% on 4 L. Patient has coarse breath sounds bilaterally. There is 2+ edema in lower extremities bilaterally. EKG showed right axis with right bundle branch similar to prior EKG from 01/22/2022. Troponin 39 without baseline for comparison. X-ray chest negative for any acute finding. proBNP of 235. Patient requires new oxygen received DuoNeb and steroids. Do not suspect pneumonia based on x-ray and clinical findings. Patient will be admitted to hospital for further evaluation of new onset hypoxemia, possible CHF/COPD exacerbation Disposition: admission Lab Data : 03/17/22 11:35 03/17/22 11:35 Radiology Impressions Chest X-Ray 03/17/22 11:03 IMPRESSION: No acute findings. Laboratory Results WBC 9.1 10^3/uL (4.0-10.0) 03/17/22 11:35 RBC 3.57 10^6/uL (4.1-5.3) L 03/17/22 11:35 Hgb 11.5 g/dL (11.5-15.3) 03/17/22 11:35 Hct 36.1 % (37.0-47.0) L 03/17/22 11:35 MCV 101.1 fl (81-99) H 03/17/22 11:35 MCH 32.2 pg (28.0-34.0) 03/17/22 11:35 MCHC 31.9 g/dL (30.0-36.0) 03/17/22 11:35 RDW 13.4 % (12.1-15.1) 03/17/22 11:35 Plt Count 234 10^3/cmm (130-400) 03/17/22 11:35 MPV 11.3 fL (7.4-10.4) H 03/17/22 11:35 Neut % (Auto) 76.1 % 03/17/22 11:35 Lymph % (Auto) 11.3 % 03/17/22 11:35 [place] % (Auto) 9.0 % 03/17/22 11:35 Eos % (Auto) 2.4 % 03/17/22 11:35 Baso % (Auto) 0.7 % 03/17/22 11:35 Neut # (Auto) 6.92 10^3/uL (1.8-7.7) 03/17/22 11:35 Lymph # (Auto) 1.0 10^3/uL (0.8-4.8) 03/17/22 11:35 [place] # (Auto) 0.8 10^3/uL (0.2-0.9) 03/17/22 11:35 Eos # (Auto) 0.2 10^3/uL (0.0-0.8) 03/17/22 11:35 Baso # (Auto) 0.1 10^3/uL (0.0-0.1) 03/17/22 11:35 Nucleated RBC % (auto) 0 % 03/17/22 11:35 Nucleated RBCs # 0.0 /100WBC 03/17/22 11:35 D-Dimer 1.88 ug/mIFEU (0-0.59) H 03/17/22 11:35 Sodium 141 mmol/L (136-145) 03/17/22 11:35 Potassium 3.4 mmol/L (3.5-5.1) L 03/17/22 11:35 Chloride 96 mmol/L (98-107) L 03/17/22 11:35 Carbon Dioxide 35 mmol/L (22-29) H 03/17/22 11:35 Anion Gap 13.4 (5-19) 03/17/22 11:35 BUN 25 mg/dL (8-23) H 03/17/22 11:35 Creatinine 0.8 mg/dL (0.5-0.9) 03/17/22 11:35 GFR Calculation Not Reportable 03/17/22 11:35 Glucose 148 mg/dL (65-115) H 03/17/22 11:35 Calculated Osmolality 299 mOsm/kg (285-295) H 03/17/22 11:35 Calcium 10.4 mg/dL (8.5-10.5) 03/17/22 11:35 Troponin T Baseline 39 ng/L (0-10) H 03/17/22 11:35 Troponin T 120 Minute 36.49 ng/L (0-10) H 03/17/22 13:20 Delta Troponin T -2.51 ABS# (0-10) L 03/17/22 13:20 NT-Pro-B Natriuret Pep 235 pg/mL (0-125) H 03/17/22 11:35 Imaging Data Other Imaging: Radiologist's impression: [address] [place] [address] XRay Report Signed Patient: Carli Brown Unit #: [id number] : 1950 Age/Sex: 71 / F ADM Date: 03/17/22 Loc: ER Room/Bed: Attending Dr: Ordering Provider/Ordering MD: Howard Butler MD Date of Service: 03/17/22 Procedure(s): XR chest 1V portable [id number] Accession Number(s): [id number] Report Number: [id number] PROCEDURE INFORMATION: Exam: XR Chest Exam date and time: 03/17/2022 12:07 PM Age: 71 years old Clinical indication: Dyspnea TECHNIQUE: Imaging protocol: XR of the chest. Views: 1 view. COMPARISON: CR XR chest 1V portable [id number] 01/22/2022 2:49 AM FINDINGS: Lungs: Unremarkable. No consolidation. Pleural spaces: Unremarkable. No pleural effusion. No pneumothorax. Heart/Mediastinum: Unremarkable. No cardiomegaly. Bones/joints: Unremarkable. Similar findings seen comparing to prior examination XR/XR chest 1V portable [id number] IMPRESSION: No acute findings. ? Dictated By: Delio Rivas Signed By: Delio Rivas Signed Date/Time: 03/17/22 1317 DD/ 1207 Discharge Plan Discharge Patient Disposition: Admitted As Inpatient Clinical Impression: Dyspnea, Hypoxemia Condition: Stable Coding Level of Care Code ED Watchstander for Chg Fwd Exam Comprehensive
[2022-03-17 11:43] LABS: Basophils # 0.1 10^3/uL (0.0-0.1); Basophils % 0.7 %; Eosinophils # 0.2 10^3/uL (0.0-0.8); Eosinophils % 2.4 %; Hematocrit 36.1 % (37.0-47.0); Hemoglobin 11.5 g/dL (11.5-15.3); Lymphocytes % 11.3 %; Mean Corpuscular HGB Conc 31.9 g/dL (30.0-36.0); Mean Corpuscular Hemoglobin 32.2 pg (28.0-34.0); Mean Corpuscular Volume 101.1 fl (81-99); Mean Platelet Volume 11.3 fL (7.4-10.4); Monocytes # 0.8 10^3/uL (0.2-0.9); Neutrophils # 6.92 10^3/uL (1.8-7.7); Neutrophils % 76.1 %; Nucleated Red Blood Cells % 0 %; Platelet Count 234 10^3/cmm (130-400); Red Blood Count 3.57 10^6/uL (4.1-5.3); Red Cell Distribution Width 13.4 % (12.1-15.1); White Blood Count 9.1 10^3/uL (4.0-10.0)
[2022-03-17 12:04] LABS: Troponin(5th) Baseline 39 ng/L (0-10)
[2022-03-17 12:14] LABS: Anion Gap 13.4 (5-19); Blood Urea Nitrogen 25 mg/dL (8-23); Calcium 10.4 mg/dL (8.5-10.5); Carbon Dioxide 35 mmol/L (22-29); Chloride 96 mmol/L (98-107); Glucose 148 mg/dL (65-115); NT Pro B Type Natriuretic Pept 235 pg/mL (0-125); Osmolality Calculated 299 mOsm/kg (285-295); Potassium 3.4 mmol/L (3.5-5.1); Sodium 141 mmol/L (136-145)
[2022-03-17 12:29] LABS: D Dimer 1.88 ug/mIFEU (0-0.59)
--- NOTE | 2022-03-17 12:30 | CTR_ITS ---
PROCEDURE INFORMATION: Exam: CTA Chest With Contrast Exam date and time: 03/17/2022 2:38 PM Age: 71 years old Clinical indication: Shortness of breath; Patient HX: SOB x 4 days recent R shoulder FX and knee surgery; Additional info: Hypoxemia TECHNIQUE: Imaging protocol: Computed tomographic angiography of the chest with contrast. 3D rendering (Not supervised by radiologist): MIP and/or 3D reconstructed images were created by the technologist. Radiation optimization: All CT scans at this facility use at least one of these dose optimization techniques: automated exposure control; mA and/or kV adjustment per patient size (includes targeted exams where dose is matched to clinical indication); or iterative reconstruction. Contrast material: OMNI 350; Contrast volume: 66 ml; Contrast route: INTRAVENOUS (IV); COMPARISON: CR (CHEST, ) 03/17/2022 12:07 PM RADIATION DOSE METRICS: Total DLP (mGy-cm): 536.63 FINDINGS: Pulmonary arteries: Normal. No pulmonary emboli. Aorta: Unremarkable. No aortic aneurysm. No aortic dissection. Lungs: Unremarkable. No consolidation. No masses. Pleural spaces: Unremarkable. No pneumothorax. No pleural effusion. Heart: Unremarkable. No cardiomegaly. No pericardial effusion. Lymph nodes: Unremarkable. No enlarged lymph nodes. Bones/joints: Dorsal spine osteoarthritis No acute fracture. Soft tissues: Hepatic steatosis. CT/CT angio chest PE protcl [id number] IMPRESSION: 1. Negative for pulmonary embolism. 2. Negative for aortic aneurysm or dissection. 3. Dorsal spine osteoarthritis. 4. Negative chest examination.
--- NOTE | 2022-03-17 13:04 | ECG_ITS ---
[facility] Test Date: 2022-03-17 Pat Name: Carli Brown Department: Room: Gender: Female Case Advocate: : 1950 Requested By: Howard Butler Order Number: [id number] Reading MD: Jem Renner M.D. Measurements Intervals [place] Rate: 71 P: 60 OR: 159 QRS: 82 QRSD: 157 T: 5 QT: 443 QTc: 482 Interpretive Statements SINUS RHYTHM RIGHT BUNDLE BRANCH BLOCK [120+ ms QRS DURATION, UPRIGHT V1, 40+ ms S IN I/aVL/V4/V5/V6] Compared to ECG 03/17/2022 11:12:52 No significant changes Electronically Signed On 03-18-2022 8:20:48 CDT by Jem Renner M.D. [id number]
[2022-03-17] MEDS: ipratropium-albuterol 3 mL Neb INHALATION ×4 (13:50→20:29)
[2022-03-17 13:59] LABS: Troponin 5 2HR 36.49 ng/L (0-10)
[2022-03-17 14:04] LABS: Troponin 5 2HR Delta -2.51 ABS# (0-10)
[2022-03-17] MEDS: iohexol 350 mg/mL 100 mL Btl IV (14:45)
--- NOTE | 2022-03-17 14:56 | PM.HP ---
Providers/Chief Complaint Chief Complaint: Dr wanted her to be seen, sob, an enlarged heart History of Present Illness Carli Brown is a 71 year old female with past medical history of hypertension, cellulitis of left leg, fracture of humerus, COPD, type 2 diabetes mellitus presented to the hospital today for complaint of shortness of breath. Shortness of breath has been increasing lately as she has seen her primary care doctor for it as well. She is on 20 mg of Lasix daily. Also for COPD she takes fluticasone Spiriva and albuterol. For the last 4 or 5 days shortness of breath has been worsening. It is mostly worse on exertion. She is now on 4 L of oxygen that is new from her baseline of 2 L. She is on 2 mg of Bumex daily and 25 mg of spironolactone and is compliant with her medications. Denies a cough, chest pain, fever, chills, sore throat, abdominal complaints, nausea, vomiting, diarrhea, melena, urinary complaints at this time. ED course: On arrival blood pressure 148/72 heart rate 18, pulse rate 76, temperature 97, pulse ox 96% on 4 L. D-dimer elevated at 1.88. EKG showed right axis with right bundle similar to previous EKG from January 2022. Initial baseline troponin 39. We do not have any old ones for comparison. Chest x-ray negative for any acute finding. BNP 235. Patient did receive Solu-Medrol 125x1 and a breathing treatment. No evidence of pneumonia on x-ray but does show pulmonary vascular congestion CTA chest ordered to rule out pulmonary embolism & report is pending. Hospitalist was called for admission. Medications/Allergies Home Medications Medication Instructions Recorded Confirmed Last Taken Type fluticasone 500 mcg-salmeterol 50 1 inh INHALATION BID 06/26/20 03/17/22 03/17/22 History mcg/dose blistr powdr for inhalation (Advair Diskus) ibuprofen 800 mg tablet 800 mg PO Q8H PRN 06/26/20 03/17/22 Unknown History sitagliptin 100 mg tablet (Januvia) 100 mg PO DAILY 06/26/20 03/17/22 03/17/22 History tiotropium bromide 1.25 2 puff INHALATION DAILY 06/26/20 03/17/22 03/17/22 History mcg/actuation mist for inhalation (Spiriva Respimat) aspirin 81 mg tablet,delayed 81 mg PO DAILY 11/27/21 03/17/22 03/17/22 History release (Adult Aspirin Regimen) metformin 500 mg tablet 500 mg PO BID 11/27/21 03/17/22 03/17/22 History simvastatin 10 mg tablet 10 mg PO QPM 11/27/21 03/17/22 03/16/22 History Vitamin B-12 1 tab PO DAILY 01/22/22 03/17/22 03/17/22 History albuterol sulfate 2.5 mg INHALATION Q6H PRN 01/22/22 03/17/22 Unknown History albuterol sulfate 90 mcg/actuation 2 puff INHALATION QID PRN 01/22/22 03/17/22 Unknown History aerosol inhaler ascorbic acid (vitamin C) 500 mg 500 mg PO DAILY 01/22/22 03/17/22 03/17/22 History tablet (Vitamin C) azithromycin 250 mg tablet 250 mg PO DAILY 01/22/22 03/17/22 03/17/22 History elderberry fruit 200 mg capsule 200 mg PO DAILY 01/22/22 03/17/22 03/17/22 History multivitamin 1 tab PO DAILY 01/22/22 03/17/22 03/17/22 History tramadol 50 mg tablet 50 mg PO Q8H PRN #14 tab 01/22/22 03/17/22 Unknown Rx benazepril 20 mg tablet 20 mg PO DAILY 03/17/22 03/17/22 03/17/22 History bumetanide 2 mg tablet 2 mg PO DAILY 03/17/22 03/17/22 03/16/22 History furosemide 20 mg tablet (Lasix) 20 mg PO DAILY 03/17/22 03/17/22 03/16/22 History irirmjhbrsos-Bn-ygwi-minerals 18 1 tab PO DAILY 03/17/22 03/17/22 03/17/22 History mg-0.4 mg tablet potassium chloride 10 mEq 10 meq PO DAILY 03/17/22 03/17/22 03/17/22 History tablet,extended release spironolactone 25 mg tablet 12.5 mg PO DAILY 03/17/22 03/17/22 03/16/22 History vit C 250 mg-vit E 90 mg-zinc 40 1 tab PO BID 03/17/22 03/17/22 03/17/22 History mg-copper 1 oy-ssdute-rlrckj capsule (PreserVision AREDS-2) Allergies Allergy/AdvReac Type Severity Reaction Status Date / Time No Known Allergies Allergy Verified 03/17/22 10:59 PFSH Acute PFSH: Medical History Benign essential HTN Cellulitis of left knee COPD (chronic obstructive pulmonary disease) Type 2 diabetes mellitus Family History Other Cancer Social History Smoking and tobacco status: former smoker Quit status (tobacco): has quit using tobacco Alcohol intake: current Alcohol intake frequency: holidays/special occasions only History of recent travel: No Current gender identity: Female Vitals/I&O/Wt Last Vital Signs Temp 97.0 F L 03/17/22 10:55 Pulse 76 03/17/22 14:14 Resp 18 03/17/22 14:14 BP 148/72 03/17/22 14:14 Pulse Ox 96 03/17/22 14:14 Weight last 48 hrs Weight 144.242 kg Physical Exam Narrative: General: Alert oriented x3, patient seen laying in bed appearing comfortable with 4L nasal cannula. HEENT: Normocephalic, atraumatic, EOMI, breathing normally, normal respiratory effort. Cardio: Regular rate rhythm, normal S1-S2, no murmurs, unable to assess JVD due to body habitus, heart sounds muffled due to body habitus. Respiratory: Diminished bilateral air entry with no gross wheezes or rhonchi, GI: Abdomen soft, nontender, obese large rounded abdomen bowel sounds + Extremities: 2-3+ pitting edema bilateral lower extremities. Right shoulder sling present Laceration on left knee present Data : 03/17/22 11:35 03/17/22 11:35 A&P Assessment and plan (1) Hypoxemia: Status: Acute (2) Closed fracture of right proximal humerus: Status: Acute (3) Cellulitis of left knee: Status: Acute (4) Knee laceration: Status: Acute (5) Type 2 diabetes mellitus: Status: Acute (6) Benign essential HTN: Status: Acute Plan #Shortness of breath on exertion mostly secondary to CHF #History of COPD on 2 L nasal cannula at home now requiring 4 L #Hypertension #Type 2 diabetes mellitus #Recent humerus fracture January 2022 ? Patient on Bumex 2 mg daily and spironolactone 25 mg daily at home that were recently given to her for 4 doses total. She was asked to stop the medications and go to ER for evaluation by her PCP. I will order Lasix 40 mg IV twice daily for now. will hold spironlactone ? We will check echo ? We will continue on Solu-Medrol 40 daily ? Azithromycin daily ? BNP is low but patient is also obese. Is possible to see a low number. Clinical signs of heart failure present. X-ray shows pulmonary vascular congestion and mild cardiomegaly ? We will treat for heart failure exacerbation versus COPD. Once we diurese patient clinical picture will be clearer. Patient perhaps has a component of both. ? CTA chest ordered to rule out pulmonary embolism -Hold home antihyperglycemic's and placed on moderate intensity insulin sliding scale ? Lovenox for DVT prophylaxis Full code All questions answered to patient satisfaction. Attestations Medical Necessity Statement*: Anticipate her to cross 2 midnights. 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
--- NOTE | 2022-03-17 15:02 | USCV_ITS ---
Carli Brown Age: 71 Gender: F : 1950 Exam Date: 03/17/2022 15:49 Ordering Phys: Anne-Marie Rock MD Technologist: Ayan Alvarez Exam Location: [facility] [place] Indication: sob BP: / HR: Rhythm: Sinus Technical Quality: Very technically difficult study MEASUREMENTS (Male / Female) Normal Values FINDINGS Left Ventricle Right Ventricle Right Atrium Left Atrium Mitral Valve Aortic Valve Tricuspid Valve Pulmonic Valve Pericardium Aorta CONCLUSIONS There are no ultrasonic windows to assess cardiac structures. Recommend repeating limited echocardiogram with contrast Dwaine Mata MD (Electronically Signed) Final Date: 19 Mar 2022 09:29 S
--- NOTE | 2022-03-17 15:43 | PC.NURSE ---
[facility]
--- NOTE | 2022-03-17 15:51 | PC.NURSE ---
updated on med not given
[2022-03-17] MEDS: azithromycin 500 MG in sodium chloride 0.9% 250 ML 250 MG IV (16:16)
[2022-03-17] MEDS: FUROsemide 10 mg/mL SDV 4mL 40 MG IVP (16:16)
[2022-03-17] MEDS: enoxaparin 40 mg/0.4 mL Syringe SUBCUT (16:16)
--- NOTE | 2022-03-17 17:04 | ECG_ITS ---
[facility] Test Date: 2022-03-17 Pat Name: Carli Brown Department: Room: 270 Gender: Female Hide Sorter: : 1950 Requested By: Howard Butler Order Number: [id number] Rosalie MD: Jem Renner M.D. Measurements Intervals [place] Rate: 73 P: 59 WA: 156 QRS: 85 QRSD: 154 T: 7 QT: 441 QTc: 489 Interpretive Statements SINUS RHYTHM RIGHT BUNDLE BRANCH BLOCK [120+ ms QRS DURATION, UPRIGHT V1, 40+ ms S IN I/aVL/V4/V5/V6] Compared to ECG 03/17/2022 13:09:03 No significant changes Electronically Signed On 03-18-2022 8:23:01 CDT by Jem Renner M.D. [id number]
[2022-03-17 17:37] LABS: Troponin 5 6HR 34.22 ng/L (0-10)
[2022-03-17 17:41] LABS: Troponin 5 6HR Delta -4.78 ng/L (0-12)
[2022-03-18] VITALS (16 sets, daily range): BP systolic 142–190; BP diastolic 74–85; PULSE 68–87; RESP 16–18; TEMP 36.4–37; O2SAT 88–98
[2022-03-18 04:55] LABS: Basophils # 0.1 10^3/uL (0.0-0.1); Basophils % 0.7 %; Eosinophils # 0.3 10^3/uL (0.0-0.8); Eosinophils % 3.1 %; Hematocrit 34.7 % (37.0-47.0); Hemoglobin 10.9 g/dL (11.5-15.3); Lymphocytes # 1.5 10^3/uL (0.8-4.8); Lymphocytes % 14.7 %; Mean Corpuscular HGB Conc 31.4 g/dL (30.0-36.0); Mean Corpuscular Volume 101.8 fl (81-99); Mean Platelet Volume 11.9 fL (7.4-10.4); Monocytes # 1.4 10^3/uL (0.2-0.9); Monocytes % 12.9 %; Neutrophils # 7.16 10^3/uL (1.8-7.7); Neutrophils % 68.1 %; Nucleated Red Blood Cells % 0 %; Platelet Count 229 10^3/cmm (130-400); Red Blood Count 3.41 10^6/uL (4.1-5.3); Red Cell Distribution Width 13.4 % (12.1-15.1); White Blood Count 10.5 10^3/uL (4.0-10.0)
[2022-03-18 05:18] LABS: Alanine Aminotransferase 20 U/L (0-33); Albumin Level 3.7 g/dL (3.5-5.2); Alkaline Phosphatase 83 IU/L (35-105); Anion Gap 14.2 (5-19); Aspartate Amino Transferase 16 U/L (0-32); Blood Urea Nitrogen 23 mg/dL (8-23); Calcium 10.2 mg/dL (8.5-10.5); Carbon Dioxide 33 mmol/L (22-29); Chloride 97 mmol/L (98-107); Globulin 3.5 g/dL (1.3-4.6); Glucose 189 mg/dL (65-115); Magnesium 2.2 mg/dL (1.7-2.3); Osmolality Calculated 301 mOsm/kg (285-295); Potassium 3.2 mmol/L (3.5-5.1); Sodium 141 mmol/L (136-145); Thyroid Stimulating Hormone 4.64 uIU/mL (0.27-4.20); Total Bilirubin 0.4 mg/dL (0.15-1.2); Total Protein 7.2 g/dL (6.6-8.7)
[2022-03-18] MEDS: ipratropium-albuterol 3 mL Neb INHALATION ×4 (07:34→22:56)
[2022-03-18] MEDS: insulin lispro 100 unit/1 mL SUBCUT ×3 (07:59→17:20)
[2022-03-18] MEDS: lisinopril 20 mg Tablet PO ×2 (07:59→12:57)
[2022-03-18] MEDS: FUROsemide 10 mg/mL SDV 4mL 40 MG IVP ×2 (08:00→17:20)
--- NOTE | 2022-03-18 08:56 | XRR_ITS ---
PROCEDURE INFORMATION: Exam: XR Chest Exam date and time: 03/18/2022 8:10 AM Age: 71 years old Clinical indication: Shortness of breath TECHNIQUE: Imaging protocol: XR of the chest. Views: 1 view. COMPARISON: CR (CHEST, ) 03/17/2022 12:07 PM FINDINGS: Lungs: No CHF/pulmonary edema. Poor inspiration somewhat limits evaluation, especially of the lung bases. Visible lungs appear essentially clear. Pleural spaces: No visible pneumothorax. No definite pleural fluid. Heart/Mediastinum: Stable heart size, upper normal to mildly enlarged. Bones/joints: Deformity of the proximal right humerus again seen. XR/XR chest 1V portable [id number] IMPRESSION: 1. No definite CHF or pneumonia. 2. Other findings discussed above.
[2022-03-18] MEDS: potassium chloride ER 20 mEq Tablet 40 MEQ PO ×2 (09:10→14:35)
[2022-03-18 09:33] LABS: Free T4 Free Thyroxine 1.24 ng/dL (0.82-1.77)
--- NOTE | 2022-03-18 12:19 | P.PN_ITS ---
Subjective Subjective: Seen this morning. Patient states she is feeling a lot better. Her breathing is a lot better as well. However she does have lower extremity edema present. 3400 cc urine output in last 24 hours. Vitals/I&O/Wt Last Vital Signs Temp 98.6 F 03/18/22 11:39 Pulse 79 03/18/22 11:42 Resp 17 03/18/22 11:39 BP 187/85 03/18/22 11:39 Pulse Ox 93 03/18/22 11:39 03/17/22 03/18/22 03/18/22 22:59 06:59 14:59 Intake Total 353 / 353 0 / 353 420 / 420 Output Total 1550 / 1550 850 / 2400 1000 / 1000 Balance -1197 / -1197 -850 / -2047 -580 / -580 Weight last 48 hrs Weight 144.242 kg Physical Exam Narrative: General: Alert oriented x3, patient seen laying in bed appearing comfortable with 4L nasal cannula. HEENT: Normocephalic, atraumatic, EOMI, breathing normally, normal respiratory effort. Cardio: Regular rate rhythm, normal S1-S2, no murmurs, unable to assess JVD due to body habitus, heart sounds muffled due to body habitus. Respiratory: Diminished bilateral air entry with no gross wheezes or rhonchi, GI: Abdomen soft, nontender, obese large rounded abdomen bowel sounds + Extremities: 2+ pitting edema bilateral lower extremities. Right shoulder sling present Laceration on left knee present Data : 03/18/22 04:00 03/18/22 04:00 A&P Assessment and plan (1) Dyspnea: Status: Acute (2) Hypoxemia: Status: Acute (3) Closed fracture of right proximal humerus: Status: Acute (4) Cellulitis of left knee: Status: Acute (5) Knee laceration: Status: Acute (6) Type 2 diabetes mellitus: Status: Acute (7) Benign essential HTN: Status: Acute Plan #Shortness of breath on exertion mostly secondary to CHF #History of COPD on 2 L nasal cannula at home now requiring 4 L #Hypertension #Type 2 diabetes mellitus #Recent humerus fracture January 2022 ? Patient on Bumex 2 mg daily and spironolactone 25 mg daily at home that were recently given to her for 4 doses total. She was asked to stop the medications a nd go to ER for evaluation by her PCP. ?Continue Lasix 40 IV twice daily. Patient will benefit from further diuresis. ? We will check echo. It has been done but report is pending. ? We will continue on Solu-Medrol 40 daily ? Azithromycin daily ? BNP is low but patient is also obese.? Is possible to see a low number.? Clinical signs of heart failure present.? X-ray shows pulmonary vascular conges tion and mild cardiomegaly. Repeat x-ray looks a lot better. ? We will treat for heart failure exacerbation versus COPD. Once we diurese patient clinical picture will be clearer. Patient perhaps has a component of both. ? CTA chest negative for PE. -Hold home antihyperglycemic's and placed on moderate intensity insulin sliding scale ? Lovenox for DVT prophylaxis ? We will do home oxygen evaluation. Full code All questions answered to patient satisfaction. Attestations Medical Necessity Statement*: Will need IV diuresis for today. Plan to DC tomorrow if clinical improvement. 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
[2022-03-18] MEDS: ibuprofen 200 mg Tablet 400 MG PO (12:56)
[2022-03-18] MEDS: neomycin-poly-bacitracin oint 28 gm 1 APPLIC TOPICAL ×2 (12:57→17:20)
[2022-03-18] MEDS: labetalol 5 mg/mL SDV 20mL 10 MG IVP (17:19)
[2022-03-18] MEDS: enoxaparin 40 mg/0.4 mL Syringe SUBCUT (17:19)
[2022-03-18] MEDS: azithromycin 500 MG in sodium chloride 0.9% 250 ML 250 MG IV (17:19)
[2022-03-19] VITALS (11 sets, daily range): BP systolic 152–195; BP diastolic 77–97; PULSE 64–82; RESP 17–18; TEMP 36.3–36.6; O2SAT 92–99
[2022-03-19] MEDS: ipratropium-albuterol 3 mL Neb INHALATION ×2 (07:36→11:13)
[2022-03-19 08:04] LABS: Glucose Point of Care 238 mg/dL (70-110)
[2022-03-19 08:04] LABS: Glucose Point of Care 202 mg/dL (70-110)
[2022-03-19 08:04] LABS: Glucose Point of Care 200 mg/dL (70-110)
[2022-03-19 08:04] LABS: Glucose Point of Care 276 mg/dL (70-110)
[2022-03-19 08:04] LABS: Glucose Point of Care 313 mg/dL (70-110)
[2022-03-19 08:04] LABS: Glucose Point of Care 224 mg/dL (70-110)
[2022-03-19 08:04] LABS: Glucose Point of Care 198 mg/dL (70-110)
[2022-03-19] MEDS: insulin lispro 100 unit/1 mL SUBCUT ×2 (08:35→12:14)
[2022-03-19] MEDS: lisinopril 20 mg Tablet 40 MG PO (08:36)
[2022-03-19] MEDS: FUROsemide 10 mg/mL SDV 4mL 40 MG IVP (08:36)
[2022-03-19] MEDS: neomycin-poly-bacitracin oint 28 gm 1 APPLIC TOPICAL (08:48)
[2022-03-19 09:47] LABS: Basophils # 0.1 10^3/uL (0.0-0.1); Basophils % 0.5 %; Eosinophils # 0.3 10^3/uL (0.0-0.8); Eosinophils % 2.2 %; Hematocrit 37.4 % (37.0-47.0); Hemoglobin 11.7 g/dL (11.5-15.3); Lymphocytes # 1.9 10^3/uL (0.8-4.8); Lymphocytes % 16.5 %; Mean Corpuscular HGB Conc 31.3 g/dL (30.0-36.0); Mean Corpuscular Hemoglobin 32.4 pg (28.0-34.0); Mean Corpuscular Volume 103.6 fl (81-99); Mean Platelet Volume 11.5 fL (7.4-10.4); Monocytes # 1.4 10^3/uL (0.2-0.9); Monocytes % 11.6 %; Neutrophils # 7.95 10^3/uL (1.8-7.7); Neutrophils % 68.6 %; Nucleated Red Blood Cells % 0 %; Platelet Count 238 10^3/cmm (130-400); Red Blood Count 3.61 10^6/uL (4.1-5.3); Red Cell Distribution Width 13.3 % (12.1-15.1); White Blood Count 11.6 10^3/uL (4.0-10.0)
[2022-03-19 10:08] LABS: Alanine Aminotransferase 20 U/L (0-33); Albumin Level 3.8 g/dL (3.5-5.2); Alkaline Phosphatase 87 IU/L (35-105); Anion Gap 16.5 (5-19); Aspartate Amino Transferase 16 U/L (0-32); Blood Urea Nitrogen 23 mg/dL (8-23); Calcium 9.9 mg/dL (8.5-10.5); Carbon Dioxide 28 mmol/L (22-29); Chloride 94 mmol/L (98-107); Globulin 3.8 g/dL (1.3-4.6); Glucose 279 mg/dL (65-115); Magnesium 2.3 mg/dL (1.7-2.3); Osmolality Calculated 294 mOsm/kg (285-295); Potassium 3.5 mmol/L (3.5-5.1); Sodium 135 mmol/L (136-145); Total Bilirubin 0.4 mg/dL (0.15-1.2); Total Protein 7.6 g/dL (6.6-8.7)
--- NOTE | 2022-03-19 10:41 | PM.DCS ---
Discharge Providers Date of Admission: 03/17/22 14:28 Date of Discharge: March 19, 2022 Attending Provider at Admission: Anne-Marie Rock MD Attending Provider at Discharge: Anne-Marie Rock MD Diagnoses at Discharge Discharge Diagnosis (1) Dyspnea: Status: Resolved (2) Hypoxemia: Status: Resolved (3) Closed fracture of right proximal humerus: Status: Resolved (4) Cellulitis of left knee: Status: Resolved (5) Knee laceration: Status: Acute (6) Type 2 diabetes mellitus: Status: Acute (7) Benign essential HTN: Status: Acute Reason for Visit Reason for Visit: wanted her to be seen, sob, an enlarged heart Brief History: Carli Brown is a 71 year old female with past medical history of hypertension, cellulitis of left leg, fracture of humerus, COPD, type 2 diabetes mellitus presented to the hospital today for complaint of shortness of breath.? Shortness of breath has been increasing lately as she has seen her primary care doctor for it as well.? She is on 20 mg of Lasix daily.? Also for COPD she takes fluticasone Spiriva and albuterol.? For the last 4 or 5 days shortness of breath has been worsening.? It is mostly worse on exertion.? She is now on 4 L of oxygen that is new from her baseline of 2 L.? She is on 2 mg of Bumex daily and 25 mg of spironolactone and is compliant with her medications.? Denies a cough, chest pain, fever, chills, sore throat, abdominal complaints, nausea, vomiting, diarrhea, melena, urinary complaints at this time. ED course: On arrival blood pressure 148/72 heart rate 18, pulse rate 76, temperature 97, pulse ox 96% on 4 L.? D-dimer elevated at 1.88.? EKG showed right axis with right bundle similar to previous EKG from January 2022.? Initial baseline troponin 39.? We do not have any old ones for comparison.? Chest x-ray negative for any acute finding.? BNP 235.? Patient did receive Solu-Medrol 125x1 and a breathing treatment.? No evidence of pneumonia on x-ray but does show pulmonary vascular congestion? CTA chest ordered to rule out pulmonary embolism & report is pending. Hospitalist was called for admission. Hospital Course Hospital Course Patient was admitted for shortness of breath most likely secondary to CHF exacerbation. She also has a history of COPD on 2 L nasal cannula at home. She was recently given Bumex 2 mg daily, spironolactone 25 mg daily for 4 doses total and asked to go to the ER for further evaluation by her primary care doctor. During hospital stay patient was diuresed with Lasix 40 IV twice daily. We removed about 6 L of fluid. Echo was done but ultrasonic windows could not be seen due to large body habitus. Day of discharge patient appeared euvolemic and she was put back on her Bumex 2 mg daily home dose. During hospital stay patient was also treated with Solu-Medrol 40 for 3 days and azithromycin for possible COPD exacerbation. However CHF exacerbation was a more favored diagnosis. Unfortunately we do not have an echo on her. I have recommended she have a stress test done as an outpatient and follow-up with cardiology. CTA chest was also done which was negative for pulmonary embolism. Home O2 eval was done and patient was back to home oxygen baseline. Patient blood pressure did randomly have some elevated episodes during hospital stay. There was also some issues with cuff size and measurement was not accurate. On day of discharge patient blood pressure was 190/100 which was not accurate as it was rechecked and it was 176/97. Amlodipine 10 mg daily was added. Lisinopril was increased to 40 daily. Patient was asked to follow-up with her primary care doctor outpatient for further adjustment of medications. Patient does have an appointment on , 03/21/2022. I also asked her to keep a log of her blood pressures at home. I suspected that blood pressure was slightly elevated due to having Solu-Medrol on board. I also called the patient next day after discharge to see how she was doing. I also called her primary care doctor to pass over transition of care information. They will further optimize patient's blood pressure medications. Patient was discharged home in stable condition. Physical Exam Narrative: General: Alert oriented x3, patient seen sitting up in chair appearing comfortable with 2L nasal cannula. HEENT: Normocephalic, atraumatic, EOMI, breathing normally, normal respiratory effort. Cardio: Regular rate rhythm, normal S1-S2, no murmurs, unable to assess JVD due to body habitus, heart sounds muffled due to body habitus. Respiratory: Diminished bilateral air entry with no gross wheezes or rhonchi, GI: Abdomen soft, nontender, obese large rounded abdomen bowel sounds + Extremities: 1+ pitting edema bilateral lower extremities. Right shoulder sling present Laceration on left knee present Discharge Data Studies Completed and Pending Completed Studies During Hospitalization Category Date Time Status CTA chest [CT angio chest PE protcl [id number]] Urgent Cat Scan 03/17/22 12:30 Completed XR chest 1V portable [id number] Routine Exams 03/18/22 08:56 Completed XR chest 1V portable [id number] Urgent Exams 03/17/22 11:03 Completed CV. echo complete* [id number] Urgent Ultrasound 03/17/22 15:02 Completed Pending at discharge Category Date Time Status Complete Blood Count w/Auto AM LABS Lab 03/20/22 04:00 Ordered Comprehensive Metabolic Panel AM LABS Lab 03/20/22 04:00 Ordered Magnesium AM LABS Lab 03/20/22 04:00 Ordered Radiology Impressions Chest CTA 03/17/22 12:30 IMPRESSION: 1. Negative for pulmonary embolism. 2. Negative for aortic aneurysm or dissection. 3. Dorsal spine osteoarthritis. 4. Negative chest examination. Chest X-Ray 03/18/22 08:56 IMPRESSION: 1. No definite CHF or pneumonia. 2. Other findings discussed above. Laboratory Results WBC 11.6 10^3/uL (4.0-10.0) H 03/19/22 09:12 RBC 3.61 10^6/uL (4.1-5.3) L 03/19/22 09:12 Hgb 11.7 g/dL (11.5-15.3) 03/19/22 09:12 Hct 37.4 % (37.0-47.0) 03/19/22 09:12 MCV 103.6 fl (81-99) H 03/19/22 09:12 MCH 32.4 pg (28.0-34.0) 03/19/22 09:12 MCHC 31.3 g/dL (30.0-36.0) 03/19/22 09:12 RDW 13.3 % (12.1-15.1) 03/19/22 09:12 Plt Count 238 10^3/cmm (130-400) 03/19/22 09:12 MPV 11.5 fL (7.4-10.4) H 03/19/22 09:12 Neut % (Auto) 68.6 % 03/19/22 09:12 Lymph % (Auto) 16.5 % 03/19/22 09:12 [place] % (Auto) 11.6 % 03/19/22 09:12 Eos % (Auto) 2.2 % 03/19/22 09:12 Baso % (Auto) 0.5 % 03/19/22 09:12 Neut # (Auto) 7.95 10^3/uL (1.8-7.7) H 03/19/22 09:12 Lymph # (Auto) 1.9 10^3/uL (0.8-4.8) 03/19/22 09:12 [place] # (Auto) 1.4 10^3/uL (0.2-0.9) H 03/19/22 09:12 Eos # (Auto) 0.3 10^3/uL (0.0-0.8) 03/19/22 09:12 Baso # (Auto) 0.1 10^3/uL (0.0-0.1) 03/19/22 09:12 Nucleated RBC % (auto) 0 % 03/19/22 09:12 Nucleated RBCs # 0.0 /100WBC 03/19/22 09:12 D-Dimer 1.88 ug/mIFEU (0-0.59) H 03/17/22 11:35 Sodium 135 mmol/L (136-145) L 03/19/22 09:12 Potassium 3.5 mmol/L (3.5-5.1) 03/19/22 09:12 Chloride 94 mmol/L (98-107) L 03/19/22 09:12 Carbon Dioxide 28 mmol/L (22-29) 03/19/22 09:12 Anion Gap 16.5 (5-19) 03/19/22 09:12 BUN 23 mg/dL (8-23) 03/19/22 09:12 Creatinine 0.7 mg/dL (0.5-0.9) 03/19/22 09:12 GFR Calculation Not Reportable 03/19/22 09:12 Glucose 279 mg/dL (65-115) H 03/19/22 09:12 POC Glucose 202 mg/dL (70-110) H 03/19/22 07:54 Calculated Osmolality 294 mOsm/kg (285-295) 03/19/22 09:12 Calcium 9.9 mg/dL (8.5-10.5) 03/19/22 09:12 Magnesium 2.3 mg/dL (1.7-2.3) 03/19/22 09:12 Total Bilirubin 0.4 mg/dL (0.15-1.2) 03/19/22 09:12 AST 16 U/L (0-32) 03/19/22 09:12 ALT 20 U/L (0-33) 03/19/22 09:12 Alkaline Phosphatase 87 IU/L (35-105) 03/19/22 09:12 Troponin T Baseline 39 ng/L (0-10) H 03/17/22 11:35 Troponin T 120 Minute 36.49 ng/L (0-10) H 03/17/22 13:20 Delta Troponin T -2.51 ABS# (0-10) L 03/17/22 13:20 Troponin T Hi Sens 6Hr 34.22 ng/L (0-10) H 03/17/22 17:06 Troponin T Hi Sens 6Hr Delta -4.78 ng/L (0-12) L 03/17/22 17:06 NT-Pro-B Natriuret Pep 235 pg/mL (0-125) H 03/17/22 11:35 Total Protein 7.6 g/dL (6.6-8.7) 03/19/22 09:12 Albumin 3.8 g/dL (3.5-5.2) 03/19/22 09:12 Globulin 3.8 g/dL (1.3-4.6) 03/19/22 09:12 TSH 4.64 uIU/mL (0.27-4.20) H 03/18/22 04:00 Free T4 1.24 ng/dL (0.82-1.77) 03/18/22 04:00 Vitals Last Vital Signs Temp 97.8 F 03/19/22 07:58 Pulse 74 03/19/22 07:58 Resp 18 03/19/22 07:58 BP 152/77 03/19/22 07:58 Pulse Ox 95 03/19/22 07:58 Discharge Plan Discharge Patient Disposition: Home Condition: Stable Prescriptions: New lisinopril 40 mg tablet 40 mg PO DAILY 30 Days Qty: 30 0RF azithromycin 500 mg tablet 500 mg PO DAILY 3 Days Qty: 3 0RF amlodipine 10 mg tablet 10 mg PO DAILY 30 Days Qty: 30 0RF Continued Januvia 100 mg tablet 100 mg PO DAILY 0RF fluticasone propion-salmeterol [Advair Diskus] 500-50 mcg/dose blister with device 1 inh INHALATION BID 0RF ibuprofen 800 mg tablet 800 mg PO Q8H PRN (Reason: Pain) 0RF Spiriva Respimat 1.25 mcg/actuation mist 2 puff INHALATION DAILY 0RF metformin 500 mg tablet 500 mg PO BID 0RF simvastatin 10 mg tablet 10 mg PO QPM 0RF aspirin [Adult Aspirin Regimen] 81 mg tablet,delayed release (DR/EC) 81 mg PO DAILY 0RF multivitamin Tablet 1 tab PO DAILY 0RF albuterol sulfate 2.5 mg /3 mL (0.083 %) solution for nebulization 2.5 mg inhalation Q6H PRN (Reason: Shortness Of Breath) 0RF ascorbic acid (vitamin C) [Vitamin C] 500 mg Tablet 500 mg PO DAILY 0RF albuterol sulfate 90 mcg/actuation HFA aerosol inhaler 2 puff inhalation QID PRN (Reason: Shortness Of Breath) 0RF elderberry fruit 200 mg Capsule 200 mg PO DAILY 0RF Vitamin B-12 1 tab PO DAILY 0RF tramadol 50 mg tablet 50 mg PO Q8H PRN (Reason: pain) Qty: 14 0RF bumetanide 2 mg Tablet 2 mg PO DAILY 0RF potassium chloride 10 mEq Tablet Extended Release 10 meq PO DAILY 0RF mcptmpunkfsd-Lw-bzts-minerals 18-0.4 mg Tablet 1 tab PO DAILY 0RF PreserVision AREDS-2 250-90-40-1 mg Capsule 1 tab PO BID 0RF Held spironolactone 25 mg Tablet 12.5 mg PO DAILY 0RF Hold Instructions: see pcp before re-starting. Discontinued azithromycin 250 mg tablet 250 mg PO DAILY 0RF benazepril 20 mg Tablet 20 mg PO DAILY 0RF furosemide [Lasix] 20 mg Tablet 20 mg PO DAILY 0RF Discharge Orders: Discharge Order (Routine); Ordered 03/19/22 Ordered By: Anne-Marie Rock Other Ambulatory Orders: Basic Metabolic Panel (Routine) Timeframe: 1 Week Facility: [facility] - Location: Lab - Main Lab Ordered By: Anne-Marie Rock Sestamibi Stress Test Request (Routine) Timeframe: 1 Day Facility: [facility] - Location: Cardiac Diagnostic Laboratory Ordered By: Anne-Marie Rock DME: [employer] (Order) Location: None Selected Ordered By: Anne-Marie Rock Referrals: Carter Hazel DO [Referring] - 03/28/22 3:45 pm (APPOINTMENT AT [facility]) Oleksandr Crawford MD [Physician] - 1 week (heart failure) Discharge Diet: Cardiac and Low Salt Discharge Activity: Resume usual activity and Oxygen as instructed Patient Instructions: Lisinopril (By mouth), Azithromycin (By mouth), Heart Failure (DC), Opioid Safety Activity Restrictions/Additional Instructions: Please avoid salty foods, especially fast food and canned foods as they have high salt content. If you develop chest pain, worsening shortness of breath or > 5 lb weight gain in 48 hour period, please return to the ER. Discharge Attestations Time Spent in Discharge Care*: other Status at Discharge: Cognitive status at discharge: cognitively intact, Behavioral status at discharge: cooperative, Quality Metrics Clinical Quality Measures [ No reported AMI, CVA or VTE this stay] Coding Level of Care Code Acute Chg FW DC note Diagnoses Dyspnea R06.00 Hypoxemia R09.02 Closed fracture of right proximal humerus S42.201A Cellulitis of left knee L03.116 Knee laceration S81.019A Type 2 diabetes mellitus E11.9 Benign essential HTN I10
[2022-03-19 11:29] LABS: Glucose Point of Care 266 mg/dL (70-110)
[2022-03-19] MEDS: amlodipine 10 mg Tablet PO (13:01)
== END 2022-03-19 14:00 | disposition home health service (06) | DRG 292 ==
LOC: ER 14:35 → MEDSURG 16:28
PROVIDERS: Admitting Provider Internal Medicine; Emergency Provider Emergency Medicine; Visit Provider Internal Medicine
DX: I11.0 Hypertensive heart disease with heart failure (principal); L03.116 Cellulitis of left lower limb; J44.1 Chronic obstructive pulmonary disease with (acute) exacerbation; Z68.43 Body mass index [BMI] 50.0-59.9, adult; I50.9 Heart failure, unspecified; Z99.81 Dependence on supplemental oxygen; E11.9 Type 2 diabetes mellitus without complications; Z96.652 Presence of left artificial knee joint; Z87.891 Personal history of nicotine dependence; S42.201D Unspecified fracture of upper end of right humerus, subsequent encounter for fracture with routine healing; X58.XXXD Exposure to other specified factors, subsequent encounter; E66.9 Obesity, unspecified; Z79.84 Long term (current) use of oral hypoglycemic drugs; Z79.82 Long term (current) use of aspirin; Z79.51 Long term (current) use of inhaled steroids; Z79.891 Long term (current) use of opiate analgesic
CPT/HCPCS: 36415; 36416; 71045; 71275; 80048; 80053; 82962; 83735; 83880; 84439; 84443; 84484; 85025; 85378; 93005; 93306; 94640; 94664; 96372; 96374; 99285; J0456; J1650; J1815; J1940; J2920; J3490; J7050; Q9967

== ENCOUNTER → 2022-04-25 12:54 | Outpatient (BNVA) | payer MEDICARE, SELFPAY | PROVIDERS: Visit Provider Orthopaedic Surgery | DX: S42.201A Unspecified fracture of upper end of right humerus, initial encounter for closed fracture (principal); X58.XXXA Exposure to other specified factors, initial encounter | CPT/HCPCS: 73030 ==

== ENCOUNTER 2022-05-15 06:00 | Outpatient (RCR) | payer MEDICARE, SELFPAY | END 2022-05-17 23:59 | disposition home or self-care (01) | LOC: MOT 06:00 | PROVIDERS: PCP Orthopaedic Surgery; Referring Provider Orthopaedic Surgery; Visit Provider Orthopaedic Surgery | DX: M75.01 Adhesive capsulitis of right shoulder (principal) | CPT/HCPCS: 97032; 97110; 97166 ==

== ENCOUNTER 2022-05-18 06:00 | Outpatient (RCR) | payer MEDICARE, SELFPAY | END 2022-06-17 23:59 | disposition home or self-care (01) | LOC: MOT 06:00 | PROVIDERS: PCP Pediatrics; Referring Provider Orthopaedic Surgery; Visit Provider Orthopaedic Surgery | DX: M75.01 Adhesive capsulitis of right shoulder (principal); S42.201D Unspecified fracture of upper end of right humerus, subsequent encounter for fracture with routine healing | CPT/HCPCS: 20610; 97032; 97110; 97140; 99213 ==

== ENCOUNTER → 2022-05-22 14:10 | Outpatient (BNVA) | payer MEDICARE, SELFPAY | PROVIDERS: PCP Pediatrics; Visit Provider Internal Medicine | DX: R60.9 Edema, unspecified (principal); E11.9 Type 2 diabetes mellitus without complications; I11.0 Hypertensive heart disease with heart failure; I50.9 Heart failure, unspecified; Z87.891 Personal history of nicotine dependence; Z79.84 Long term (current) use of oral hypoglycemic drugs; I45.10 Unspecified right bundle-branch block; R94.31 Abnormal electrocardiogram [ECG] [EKG] | CPT/HCPCS: 80048; 83880; 93005; 99204 ==

== ENCOUNTER 2022-06-18 06:00 | Outpatient (RCR) | payer MEDICARE, SELFPAY | END 2022-07-18 23:59 | disposition home or self-care (01) | LOC: MOT 06:00 | PROVIDERS: PCP Pediatrics; Visit Provider Orthopaedic Surgery | DX: M75.01 Adhesive capsulitis of right shoulder (principal) | CPT/HCPCS: 97032; 97110; 97140 ==

== ENCOUNTER 2022-06-26 10:24 | Outpatient (CLI) | payer MEDICARE, SELFPAY ==
--- NOTE | 2022-06-26 11:00 | USCV_ITS ---
Kevin Carli Age: 71 Gender: F : 1950 Exam Date: 06/26/2022 11:15 Ordering Phys: Dwaine Mata M.D ([email or web address]) Technologist: Kyle Quijano Exam Location: [facility] Indication: CHF BP: 150 / 90 HR: 69 Rhythm: Sinus Technical Quality: Technically difficult study MEASUREMENTS (Male / Female) Normal Values 2D ECHO LV Diastolic Diameter PLAX 4.8 cm 4.2 - 5.9 / 3.9 - 5.3 cm LV Systolic Diameter PLAX 3.3 cm IVS Diastolic Thickness 0.9 cm 0.6 - 1.0 / 0.6 - 0.9 cm IVS Systolic Thickness 1.2 cm LVPW Diastolic Thickness 1.4 cm 0.6 - 1.0 / 0.6 - 0.9 cm LVPW Systolic Thickness 1.5 cm LVOT Diameter 2.0 cm LV Ejection Fraction 2D Teich 60.9 % LA Diameter 3.5 cm Aorta at Sinotubular Diameter 2.1 cm M-MODE Aortic Annulus Diameter 2.2 cm LA Ao Ratio MM 1.7 MV E Point Septal Separation 0.8 cm DOPPLER TR Peak Velocity 230.2 cm/s TR Peak Gradient 21.2 mmHg TR Mean Velocity 182.5 cm/s TR Mean Gradient 13.8 mmHg TR Velocity Time Integral 60.1 cm RV Acceleration Time 0.1 s RV Ejection Time 0.2 s RV AcT/ET 0.5 FINDINGS Left Ventricle Right Ventricle Right Atrium Left Atrium Mitral Valve Aortic Valve Tricuspid Valve Pulmonic Valve Pericardium Aorta IVC CONCLUSIONS Technically limited quality echocardiogram because of very poor ultrasonic windows. Grossly LV systolic function is normal. Regional wall motion abnormalities cannot be accurately assessed because of poor visualization. Valvular structures are not seen. Comparison with prior echoes cannot be done because of poor visualization. Dwaine Mata MD (Electronically Signed) Final Date: 26 June 2022 13:21 S
[2022-06-26] MEDS: perflutren protein-a microsphr 0.22 mg/mL SDV 3 mL IV (16:04)
== END 2022-06-26 10:25 | disposition home or self-care (01) ==
LOC: RAD 10:25
PROVIDERS: PCP Pediatrics; Visit Provider Internal Medicine
DX: I50.9 Heart failure, unspecified (principal)
CPT/HCPCS: C8929

== ENCOUNTER → 2022-07-03 15:09 | Outpatient (BNVA) | payer MEDICARE, SELFPAY | PROVIDERS: PCP Pediatrics; Visit Provider Internal Medicine | DX: R60.9 Edema, unspecified (principal); E11.9 Type 2 diabetes mellitus without complications; Z79.84 Long term (current) use of oral hypoglycemic drugs; I10 Essential (primary) hypertension; Z87.891 Personal history of nicotine dependence | CPT/HCPCS: 99214 ==

== ENCOUNTER 2022-07-26 13:38 | Outpatient (CLI) | payer MEDICARE, SELFPAY ==
[2022-07-26 14:31] LABS: Anion Gap 16.4 (5-19); Calcium 9.8 mg/dL (8.5-10.5); Carbon Dioxide 34 mmol/L (22-29); Chloride 87 mmol/L (98-107); Glucose 213 mg/dL (65-115); NT Pro B Type Natriuretic Pept 96 pg/mL (0-125); Osmolality Calculated 309 mOsm/kg (285-295); Potassium 3.4 mmol/L (3.5-5.1); Sodium 134 mmol/L (136-145)
[2022-07-26 15:02] LABS: Blood Urea Nitrogen 81 mg/dL (8-23)
== END 2022-07-26 13:39 | disposition home or self-care (01) ==
LOC: LAB 13:41
PROVIDERS: PCP Pediatrics; Visit Provider Internal Medicine
DX: I50.9 Heart failure, unspecified (principal)
CPT/HCPCS: 80048; 83880

== ENCOUNTER → 2022-07-30 11:28 | Outpatient (BNVA) | payer MEDICARE, SELFPAY | PROVIDERS: PCP Pediatrics; Visit Provider Internal Medicine | DX: I50.9 Heart failure, unspecified (principal); I10 Essential (primary) hypertension | CPT/HCPCS: 80048; 83880 ==

== ENCOUNTER 2022-08-21 12:20 | Outpatient (CLI) | payer MEDICARE, SELFPAY ==
[2022-08-21 13:15] LABS: Blood Urea Nitrogen 77 mg/dL (8-23); Calcium 9.9 mg/dL (8.5-10.5); Carbon Dioxide 34 mmol/L (22-29); Chloride 92 mmol/L (98-107); Glucose 281 mg/dL (65-115); NT Pro B Type Natriuretic Pept 107 pg/mL (0-125); Osmolality Calculated 317 mOsm/kg (285-295); Sodium 137 mmol/L (136-145)
== END 2022-08-21 12:21 | disposition home or self-care (01) ==
LOC: LAB 12:21
PROVIDERS: PCP Pediatrics; Visit Provider Internal Medicine
DX: I50.9 Heart failure, unspecified (principal); I10 Essential (primary) hypertension
CPT/HCPCS: 36415; 80048; 83880; 99214

== ENCOUNTER 2022-08-30 13:33 | Outpatient (CLI) | payer MEDICARE, SELFPAY | END 2022-08-30 13:34 | disposition home or self-care (01) | LOC: LAB 13:35 | PROVIDERS: PCP Pediatrics; Visit Provider Internal Medicine | DX: I50.9 Heart failure, unspecified (principal) | CPT/HCPCS: 36415 ==

== ENCOUNTER 2022-09-04 09:00 | Outpatient (CLI) | payer MEDICARE, SELFPAY ==
[2022-09-04 10:07] LABS: Anion Gap 12.8 (5-19); Blood Urea Nitrogen 28 mg/dL (8-23); Calcium 9.8 mg/dL (8.5-10.5); Carbon Dioxide 31 mmol/L (22-29); Chloride 98 mmol/L (98-107); Glucose 293 mg/dL (65-115); NT Pro B Type Natriuretic Pept 402 pg/mL (0-125); Osmolality Calculated 302 mOsm/kg (285-295); Potassium 3.8 mmol/L (3.5-5.1); Sodium 138 mmol/L (136-145)
== END 2022-09-04 09:01 | disposition home or self-care (01) ==
LOC: LAB 09:02
PROVIDERS: PCP Pediatrics; Visit Provider Internal Medicine
DX: I50.9 Heart failure, unspecified (principal)
CPT/HCPCS: 36415; 80048; 83880

== ENCOUNTER 2022-10-22 06:00 | Outpatient (RCR) | payer MEDICARE, SELFPAY | END 2022-11-17 23:59 | disposition home or self-care (01) | LOC: MOT 06:00 | PROVIDERS: PCP Pediatrics; Visit Provider Orthopaedic Surgery | DX: M75.01 Adhesive capsulitis of right shoulder (principal) | CPT/HCPCS: 97032; 97035; 97110; 97140; 97166 ==

== ENCOUNTER 2022-11-18 06:00 | Outpatient (RCR) | payer MEDICARE, SELFPAY | END 2022-12-18 23:59 | disposition home or self-care (01) | LOC: MOT 06:00 | PROVIDERS: PCP Pediatrics; Visit Provider Orthopaedic Surgery | DX: M75.01 Adhesive capsulitis of right shoulder (principal) | CPT/HCPCS: 97032; 97035; 97110; 97140 ==

== ENCOUNTER → 2022-12-10 12:39 | Outpatient (BNVA) | payer MEDICARE, SELFPAY | PROVIDERS: PCP Pediatrics; Visit Provider Internal Medicine | DX: R60.9 Edema, unspecified (principal); Z79.84 Long term (current) use of oral hypoglycemic drugs; E11.9 Type 2 diabetes mellitus without complications; I10 Essential (primary) hypertension; Z87.891 Personal history of nicotine dependence | CPT/HCPCS: 99214 ==

== ENCOUNTER 2022-12-28 12:19 | Outpatient (CLI) | payer MEDICARE, SELFPAY ==
[2022-12-28 13:13] LABS: Blood Urea Nitrogen 24 mg/dL (8-23); Calcium 9.7 mg/dL (8.5-10.5); Carbon Dioxide 31 mmol/L (22-29); Chloride 99 mmol/L (98-107); Glucose 317 mg/dL (65-115); NT Pro B Type Natriuretic Pept 158 pg/mL (0-125); Osmolality Calculated 300 mOsm/kg (285-295); Sodium 137 mmol/L (136-145)
[2022-12-28 13:16] LABS: Anion Gap 11.6 (5-19); Potassium 4.6 mmol/L (3.5-5.1)
== END 2022-12-28 12:20 | disposition home or self-care (01) ==
LOC: LAB 12:23
PROVIDERS: PCP Pediatrics; Visit Provider Internal Medicine
DX: I50.9 Heart failure, unspecified (principal)
CPT/HCPCS: 36415; 80048; 83880

== ENCOUNTER 2023-04-03 13:31 | Emergency (ER) | payer MEDICARE, SELFPAY ==
[2023-04-03 13:35] VITALS: BP 187/74; PULSE 86; RESP 19; TEMP 36.6; O2SAT 93; BMI 54.1
--- NOTE | 2023-04-03 14:04 | XR_ITS ---
WS: [id number] Portable AP upright chest, 04/03/2023 Clinical Data: dyspnea/cough Comparison: Portable chest, 03/18/2022 Findings: No nodules, masses or effusions are seen. The heart is normal. The pulmonary vascularity is not increased. No pneumonia or pneumothorax is seen. The aortic arch and descending thoracic aorta s how tortuosity. There is deformity of the right humeral head unchanged. XR/XR chest 1V portable [id number] Impression: Atherosclerosis.
--- NOTE | 2023-04-03 14:04 | ECG_ITS ---
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 Measurements Intervals Inlet Rate: 82 P: 129 TN: 150 QRS: 161 QRSD: 166 T: 11 QT: 416 QTc: 488 Interpretive Statements SINUS RHYTHM RIGHT BUNDLE BRANCH BLOCK Compared to ECG 03/17/2022 16:49:41 NO SIGNIFICANT CHANGES Electronically Signed On 04-03-2023 17:46:04 CDT by Dwaine Mata M.D. [id number]
--- NOTE | 2023-04-03 14:08 | W.ED.EXTPRO ---
HPI - Extremity Problem General: Chief complaint: Recheck/Abnormal Lab/Rx Stated complaint: Matthieu sent for abn labs Time Seen by Provider: 04/03/23 13:59 Source: patient Mode of arrival: ambulatory History of Present Illness: Morbidly obese 72-year-old female with a history of congestive heart failure presents with increased swelling. She has some chronic orthopnea although it seems for the most part at her baseline. She relates she is cut back on her Bumex from 2 mg to 1 mg. She is states that her doctor directed her to the emergency room to have the lab work done out of concern for her kidney function. She has not had any particular chest pain she is chronically on oxygen. Echocardiogram done June 2022 was difficult to interpret due to body habitus. Conclusions reviewed in the chart. Evidently they were unable to assess the valvular structures in the body of the report 2D ejection fraction of 60.9%. MD Complaint: extremity swelling Onset (ago): day(s) Relieving factors: nothing Exacerbating factors: nothing Associated symptoms: Deny chest pain, fever(s) or rash Review of Systems Const: Denies: fever(s), chills, body aches, change in appetite, fatigue or malaise ENMT: Denies: throat pain, ear or mastoid pain, nasal discharge or nasal congestion Card: Reports: edema, swelling of feet/ankles, dyspnea on exertion and orthopnea; Denies: chest pain, palpitations or irregular heart rhythm Resp: Denies: dyspnea, productive cough or non-productive cough GI: Denies: abdominal pain, nausea, vomiting, hematemesis, coffee ground emesis, diarrhea, constipation, bloating, hematochezia or melena : Denies: flank pain, difficulty voiding, dysuria, urinary frequency or urinary urgency Skin/Breast: Denies: rash or pruritus PFSH ED PFSH: Medical History Benign essential HTN Cellulitis of left knee COPD (chronic obstructive pulmonary disease) Type 2 diabetes mellitus Family History Other Cancer Social History Smoking and tobacco status: former smoker Quit status (tobacco): has quit using tobacco Alcohol intake: current Alcohol intake frequency: holidays/special occasions only Substance/Drug Use: never Current gender identity: Female Physical Exam Const: GENERAL APPEARANCE: cooperative and comfortable ORIENTATION/CONSCIOUSNESS: Yes awake, Yes oriented to person, Yes oriented to place and Yes oriented to time HENMT: COMMON NORMALS: normocephalic, atraumatic and hearing grossly normal bilaterally HEAD & SCALP: normocephalic and atraumatic Resp: COMMON NORMALS: normal respiratory effort, No retractions and No use of accessory muscles AUSCULTATION: crackles Cardio: COMMON NORMALS: regular rate, regular rhythm and No murmurs present (Cardio) RATE: regular rate RHYTHM: regular rhythm GI: COMMON NORMALS: Soft to palpation and No hepatosplenomegaly present AUSCULTATION: Yes normoactive bowel sounds PALPATION: Yes Soft to palpation, No Tenderness to palpation present (GI), No Guarding due to palpation present (GI) and Yes No hepatosplenomegaly present Extremity: COMMON NORMALS: normal to inspection, capillary refill normal and no calf tenderness GENERAL: Yes edema (2+ pitting edema of the lower legs) Neuro: SENSORIUM/ORIENTATION: Yes oriented to person, Yes oriented to place and Yes oriented to time Skin: COMMON NORMALS: no rashes or lesions noted GENERAL SKIN EXAM: no rashes or lesions noted Course Vital Signs: Vital signs: Vital Signs Temperature 97.9 F 04/03/23 13:35 Pulse Rate 98 04/03/23 16:55 Respiratory Rate 20 H 04/03/23 16:55 Blood Pressure 198/112 04/03/23 16:55 Pulse Oximetry 98 04/03/23 16:55 Oxygen Delivery Me thod Nasal Cannula 04/03/23 14:16 Oxygen Flow Rate 3 04/03/23 14:16 MDM - Extremity (Nontraumatic) Medical Decision Making Patient seen with extremity edema signs of fluid overload given Lasix here. We will also start her on Toprol-XL blood pressure was mildly elevated creatinine slightly elevated her GFR calculated to be 40 largely at the function of her age. No further intervention at this time we will discharge patient home and have her follow-up with her primary care doctor. Medical Records I reviewed the patient's medical records. Lab Data I reviewed the patient's lab results. 04/03/23 14:14 04/03/23 14:14 Radiology Impressions Chest X-Ray 04/03/23 14:04 Impression: Atherosclerosis. Laboratory Results WBC 10.3 10^3/uL (4.0-10.0) H 04/03/23 14:14 RBC 4.24 10^6/uL (4.1-5.3) 04/03/23 14:14 Hgb 13.5 g/dL (11.5-15.3) 04/03/23 14:14 Hct 42.2 % (37.0-47.0) 04/03/23 14:14 MCV 99.5 fl (81-99) H 04/03/23 14:14 MCH 31.8 pg (28.0-34.0) 04/03/23 14:14 MCHC 32.0 g/dL (30.0-36.0) 04/03/23 14:14 RDW 13.3 % (12.1-15.1) 04/03/23 14:14 Plt Count 198 10^3/cmm (130-400) 04/03/23 14:14 MPV 11.7 fL (7.4-10.4) H 04/03/23 14:14 Neut % (Auto) 74.3 % 04/03/23 14:14 Lymph % (Auto) 12.6 % 04/03/23 14:14 [place] % (Auto) 8.1 % 04/03/23 14:14 Eos % (Auto) 3.2 % 04/03/23 14:14 Baso % (Auto) 0.9 % 04/03/23 14:14 Neut # (Auto) 7.68 10^3/uL (1.8-7.7) 04/03/23 14:14 Lymph # (Auto) 1.3 10^3/uL (0.8-4.8) 04/03/23 14:14 [place] # (Auto) 0.8 10^3/uL (0.2-0.9) 04/03/23 14:14 Eos # (Auto) 0.3 10^3/uL (0.0-0.8) 04/03/23 14:14 Baso # (Auto) 0.1 10^3/uL (0.0-0.1) 04/03/23 14:14 Nucleated RBC % (auto) 0 % 04/03/23 14:14 Nucleated RBCs # 0.0 /100WBC 04/03/23 14:14 Sodium 138 mmol/L (136-145) 04/03/23 14:14 Potassium 4.2 mmol/L (3.5-5.1) 04/03/23 14:14 Chloride 100 mmol/L (98-107) 04/03/23 14:14 Carbon Dioxide 25 mmol/L (22-29) 04/03/23 14:14 Anion Gap 17.2 (5-19) 04/03/23 14:14 BUN 26 mg/dL (8-23) H 04/03/23 14:14 Creatinine 1.2 mg/dL (0.5-0.9) H 04/03/23 14:14 GFR Calculation Not Reportable 04/03/23 14:14 Glucose 222 mg/dL (65-115) H 04/03/23 14:14 Calculated Osmolality 298 mOsm/kg (285-295) H 04/03/23 14:14 Calcium 9.8 mg/dL (8.5-10.5) 04/03/23 14:14 Total Bilirubin 0.4 mg/dL (0.15-1.2) 04/03/23 14:14 AST 22 U/L (0-32) 04/03/23 14:14 ALT 26 U/L (0-33) 04/03/23 14:14 Alkaline Phosphatase 99 U/L (35-105) 04/03/23 14:14 NT-Pro-B Natriuret Pep 298 pg/mL (0-125) H 04/03/23 14:14 Total Protein 7.5 g/dL (6.6-8.7) 04/03/23 14:14 Albumin 4.1 g/dL (3.5-5.2) 04/03/23 14:14 Globulin 3.4 g/dL (1.3-4.6) 04/03/23 14:14 Urine Color Yellow (Yellow) 04/03/23 14:31 Urine Appearance Clear (CLEAR) 04/03/23 14:31 Urine pH 5 (5-7) 04/03/23 14:31 Ur Specific [place] 1.015 (1.005-1.030) 04/03/23 14:31 Urine Protein Neg (Negative) 04/03/23 14:31 Urine Glucose (UA) 4+ (Normal) H 04/03/23 14:31 Urine Ketones 1+ (Negative) H 04/03/23 14:31 Urine Blood Neg (Negative) 04/03/23 14:31 Urine Nitrate Negative (Negative) 04/03/23 14:31 Urine Bilirubin Neg (Negative) 04/03/23 14:31 Urine Urobilinogen Neg mg/dL (Negative) 04/03/23 14:31 Ur Leukocyte Esterase Negative (Negative) 04/03/23 14:31 Discharge Plan Discharge Patient Disposition: Home Clinical Impression: Benign essential HTN, CHF exacerbation Condition: Stable Prescriptions: New Toprol XL 25 mg tablet extended release 24 hr 25 mg PO DAILY Qty: 30 0RF No Action Januvia 100 mg tablet 100 mg PO DAILY ibuprofen 800 mg tablet 800 mg PO Q8H PRN (Reason: Pain) simvastatin 10 mg tablet 10 mg PO QPM aspirin [Adult Aspirin Regimen] 81 mg tablet,delayed release (DR/EC) 81 mg PO DAILY lisinopril 20 mg tablet 20 mg PO DAILY Qty: 90 3RF bumetanide 1 mg tablet 1 mg PO BID Qty: 180 3RF potassium chloride 10 mEq capsule, extended release 10 meq PO DAILY Qty: 90 3RF multivitamin Tablet 1 tab PO DAILY albuterol sulfate 2.5 mg /3 mL (0.083 %) solution for nebulization 2.5 mg inhalation Q6H PRN (Reason: Shortness Of Breath) ascorbic acid (vitamin C) [Vitamin C] 500 mg Tablet 500 mg PO DAILY elderberry fruit 200 mg Capsule 200 mg PO DAILY Vitamin B-12 1 tab PO DAILY PreserVision AREDS-2 250-90-40-1 mg Capsule 1 tab PO BID metformin 850 mg tablet 850 mg PO BID azithromycin 250 mg tablet 250 mg PO DAILY Wixela Inhub 500-50 mcg/dose blister with device 1 ea INHALATION DAILY Farxiga 5 mg tablet 5 mg PO DAILY Spiriva Respimat 1.25 mcg/actuation mist 2 puff INHALATION DAILY Discharge Orders: Discharge ED (Routine); Ordered 04/03/23 Ordered By: Gary Khan Referrals: Loretta Sommers PA-C [Primary Care Provider] - Discharge Diet: Cardiac Discharge Activity: Increase activity as tolerated Patient Instructions: Opioid Safety, Pain Management Activity Restrictions/Additional Instructions: You were seen today with elevated blood pressure and fluid overload. You are given extra Lasix. Recommend he start Toprol-XL 25 once daily follow-up with your doctor within the next week to reevaluate your blood pressure and fluid status. Coding Level of Care Code ED Supervisor [employer] for Phillip Sierra
[2023-04-03 14:16] VITALS: BP 198/112; PULSE 98; RESP 20; O2SAT 98
[2023-04-03 14:25] LABS: Basophils # 0.1 10^3/uL (0.0-0.1); Basophils % 0.9 %; Eosinophils # 0.3 10^3/uL (0.0-0.8); Eosinophils % 3.2 %; Hematocrit 42.2 % (37.0-47.0); Hemoglobin 13.5 g/dL (11.5-15.3); Lymphocytes # 1.3 10^3/uL (0.8-4.8); Lymphocytes % 12.6 %; Mean Corpuscular Hemoglobin 31.8 pg (28.0-34.0); Mean Corpuscular Volume 99.5 fl (81-99); Mean Platelet Volume 11.7 fL (7.4-10.4); Monocytes # 0.8 10^3/uL (0.2-0.9); Monocytes % 8.1 %; Neutrophils # 7.68 10^3/uL (1.8-7.7); Neutrophils % 74.3 %; Nucleated Red Blood Cells % 0 %; Platelet Count 198 10^3/cmm (130-400); Red Blood Count 4.24 10^6/uL (4.1-5.3); Red Cell Distribution Width 13.3 % (12.1-15.1); White Blood Count 10.3 10^3/uL (4.0-10.0)
[2023-04-03] MEDS: FUROsemide 10 mg/mL SDV 10mL 60 MG IVP (14:27)
[2023-04-03 14:34] LABS: Add Urine Microscopic? NO; Charge for UA Resulting for Rev
[2023-04-03 14:38] LABS: Bilirubin Urine Neg (Negative); Blood Urine Neg (Negative); Glucose Urine UA 4+ (Normal); Ketones Urine 1+ (Negative); Leukocyte Esterase Urine Negative (Negative); Nitrate Urine Negative (Negative); Protein Urine Neg (Negative); Specific Gravity, Urine 1.015 (1.005-1.030); Urine Appearance Clear (CLEAR); Urine Color Yellow (Yellow); Urobilinogen Urine Neg (Negative); pH Urine 5 (5-7)
[2023-04-03 14:54] LABS: Alanine Aminotransferase 26 U/L (0-33); Albumin Level 4.1 g/dL (3.5-5.2); Alkaline Phosphatase 99 U/L (35-105); Aspartate Amino Transferase 22 U/L (0-32); Blood Urea Nitrogen 26 mg/dL (8-23); Calcium 9.8 mg/dL (8.5-10.5); Carbon Dioxide 25 mmol/L (22-29); Chloride 100 mmol/L (98-107); Globulin 3.4 g/dL (1.3-4.6); Glucose 222 mg/dL (65-115); NT Pro B Type Natriuretic Pept 298 pg/mL (0-125); Osmolality Calculated 298 mOsm/kg (285-295); Sodium 138 mmol/L (136-145); Total Bilirubin 0.4 mg/dL (0.15-1.2); Total Protein 7.5 g/dL (6.6-8.7)
[2023-04-03 14:59] LABS: Anion Gap 17.2 (5-19); Potassium 4.2 mmol/L (3.5-5.1)
[2023-04-03] MEDS: hyDRALAzine 20 mg/mL INJ 1 mL IVP (16:18)
[2023-04-03 16:55] VITALS: BP 198/112; PULSE 98; RESP 20; O2SAT 98
== END 2023-04-03 16:57 | disposition home or self-care (01) ==
PROVIDERS: Emergency Medicine; Emergency Provider Family Medicine; PCP Physician Assistant
DX: I11.0 Hypertensive heart disease with heart failure (principal); I50.9 Heart failure, unspecified; Z87.891 Personal history of nicotine dependence
CPT/HCPCS: 36415; 71045; 80053; 81003; 83880; 85025; 93005; 96374; 96375; 99284; J0360; J1940

== ENCOUNTER → 2023-06-10 15:27 | Outpatient (BNVA) | payer MEDICARE, SELFPAY | PROVIDERS: PCP Physician Assistant; Visit Provider Internal Medicine | DX: R60.9 Edema, unspecified (principal); E11.9 Type 2 diabetes mellitus without complications; I10 Essential (primary) hypertension; Z87.891 Personal history of nicotine dependence; Z79.84 Long term (current) use of oral hypoglycemic drugs | CPT/HCPCS: 99214 ==

== ENCOUNTER 2023-07-09 13:30 | Emergency (ER) | payer MEDICARE, SELFPAY ==
[2023-07-09 13:31] VITALS: BP 187/69; PULSE 71; RESP 20; TEMP 36.9; O2SAT 92; BMI 54.1
[2023-07-09 13:57] VITALS: BP 187/69; PULSE 65; O2SAT 98
--- NOTE | 2023-07-09 14:17 | CT_ITS ---
WS: [id number] CT HEAD TECHNIQUE: Noncontrast CT of the head obtained from the skullbase to the vertex. CLINICAL INFORMATION: fall/trauma COMPARISON: 01/21/2022 DLP: 1124.[address] scans at [facility] use at least one of these dose optimization techniques: automated e xposure control; mA and/or kV adjustment per patient size (includes targeted exams where dose is matc hed to clinical indication); or iterative reconstruction. FINDINGS: No evidence of intracranial hemorrhage or mass effect. Ventricular system and basal cisterns are sepulveda nt. Mild small vessel changes with mild parenchymal volume loss. No extra-axial fluid collections. No evidence of mass or mass effect. Mucosal thickening in the ethmoid air cells. Intracranial vascular calcification. Mastoid air cells a re well aerated. Normal posterior nasopharynx. Incidental RIGHT frontal calvarial osteoma. IMPRESSION: 1. No evidence of intracranial hemorrhage or mass effect. 2. No acute intracranial findings.
--- NOTE | 2023-07-09 14:23 | XR_ITS ---
WS: [id number] EXAMINATION: XR knee LT 3V* [id number] REASON FOR EXAM: fall/injury COMPARISON: 01/21/2022 ORDER DATE: 07/09/2023 2:23 PM FINDINGS: There are marginal osteophytes associated with the tibial spines, patella and other articular margins with medial and patellofemoral compartment narrowing. There is no sign of any acute fracture or disl ocation. A small joint effusion cannot be excluded but there is no evidence of any large effusion IMPRESSION: MEDIAL AND PATELLOFEMORAL COMPARTMENT NARROWING WITH OSTEOARTHRITIC CHANGES.
--- NOTE | 2023-07-09 14:26 | ED_ITS ---
HPI - Fall General: Chief Complaint: Fall Stated Complaint: fall Time Seen by Provider: 07/09/23 13:40 Source: patient Mode of arrival: EMS Limitations: no limitations History of Present Illness: Patient is a 72-year-old female with history of COPD and diabetes who presents to the emergency department via EMS due to fall onset today. Patient states she was at a restaurant and scooting behind another table on the way to be seated when she tripped/stumbled, hitting her head on an open door and landing on her left knee. She denies losing consciousness and states she was able to sit up after the incident, getting to her feet after 5-10 minutes. She reports subsequent left knee pain, abrasions to her left hand and elbow, and some pain over her frontal bone where she made contact with the door. She states she is on blood thinner, but after reviewing her medications I do not see evidence of a prescription. She denies any symptoms prior to falling, and states that it was entirely accidental. She also denies any current chest pain, breathing difficulties, other injuries, palpitations, weakness, numbness, visual changes, or any other symptoms. She states she has not taken her medications today as she is supposed to take them after a meal, which she did not get to eat at the restaurant. She denies any prior surgeries. She is currently on 3 L of oxygen which she states she is on chronically. MD complaint: fall Onset (ago): hour(s) Fall from: standing Fall witnessed: yes, by family Place fall occurred: other (Restaurant) Loss of consciousness: None Prolonged down time: no Symptoms prior to fall: none Context: tripped/slipped Location of injury: head Location of injury - extremities: Left: elbow (Abrasion), hand (Abrasion) and knee Severity: mild Associated symptoms-after fall: Reports no associated symptoms and headache(s); Denies abdominal pain, chest pain, confusion, hematuria, lightheadedness or neck pain Review of Systems Const: Reports: other (Fall) Eyes: Denies: change in vision, blurry vision, photophobia, eye discharge, floaters or seeing flashes ENMT: Denies: throat pain, odynophagia, ear or mastoid pain, ear discharge, nasal discharge, epistaxis or sinus pain Card: Denies: chest pain, palpitations, lightheadedness, syncope or pre-s yncope Resp: Denies: dyspnea or pain on inspiration GI: Denies: abdominal pain : Denies: flank pain or hematuria Musc: Reports: joint pain (Left knee); Denies: neck pain, back pain or extremity pain Skin/Breast: Reports: new lesions (Abrasions to left elbow and left hand) Neuro: Reports: headache(s); Denies: numbness in extremities, weakness in extremities, sensory changes, lack of coordination, dizziness, confusion, Slurred speech present or difficulty communicating thoughts PFSH ED PFSH: Medical History Benign essential HTN Cellulitis of left knee COPD (chronic obstructive pulmonary disease) Type 2 diabetes mellitus Family History Other Cancer Social History Smoking and tobacco status: former smoker Quit status (tobacco): has quit using tobacco Alcohol intake: current Alcohol intake frequency: holidays/special occasions only Substance/Drug Use: never Current gender identity: Female Physical Exam Const: COMMON NORMALS: no acute distress, average body habitus, patient oriented x3, no limitations, healthy appearing, alert and well nourished GENERAL APPEARANCE: cooperative NUTRITIONAL APPEARANCE: obese morbidly obese ORIENTATION/CONSCIOUSNESS: Yes awake, Yes oriented to person, Yes oriented to place and Yes oriented to time HENMT: COMMON NORMALS: normocephalic, atraumatic and TM's normal bilaterally HEAD & SCALP: normal to inspection, normocephalic and atraumatic; no Hale's sign, no hematoma and no raccoon eyes FACE & SINUS: normal facial exam TYMPANIC MEMBRANE: TM's normal bilaterally MOUTH: other (no intraoral injuries noted) Eye: COMMON NORMALS: Equal, round and reactive pupils present and EOMs intact bilaterally GENERAL EYE: appearance normal, both eyes and all related structures and normal light reflex PUPIL: Yes Equal, round and reactive pupils present DIRECT OPHTHALMOSCOPY: Yes normal light reflex Neck/C-Spine: COMMON NORMALS: full ROM GENERAL: Yes normal visual inspection CERVICAL SPINE: Yes cervical ROM normal, No pain with cervical ROM, No Cervical spine tenderness, No step off deformity and No Paracervical muscle tenderness Chest: COMMONS NORMALS: normal inspection of the chest and normal palpation of entire chest wall Resp: COMMON NORMALS: normal respiratory effort and clear to auscultation bilaterally AUSCULTATION: clear to auscultation bilaterally Cardio: COMMON NORMALS: regular rate and regular rhythm RATE: regular rate RHYTHM: regular rhythm GI: COMMON NORMALS: Normal to inspection, nondistended, normoactive bowel sounds present, Soft to palpation, non-tender, No hepatosplenomegaly present and no masses INSPECTION: Yes normal to inspection and No abdominal wall ecchymosis AUSCULTATION: Yes normoactive bowel sounds PALPATION: Yes Soft to palpation and Yes No hepatosplenomegaly present Back/Pelvis: COMMON NORMALS: thoracic and lumbar spine normal to inspection, no thoracic nor lumbar tenderness and thoraco-lumbar ROM normal Extremity: COMMON NORMALS: full ROM GENERAL: Yes normal exam except as noted LEFT UPPER EXTREMITY: Yes elbow joint Left elbow: Yes inspection (Skin tear over elbow joint) and Yes hand & digits Left hand and digits: Yes inspection (Skin tear over dorsal hand) LEFT LOWER EXTREMITY: Yes knee joint Left knee: Yes inspection (Small linear abrasion noted to the anterior aspect of the knee), Yes palpation (No bony tenderness to palpation), Yes ROM (Painless active and passive range of motion) and Yes neurovascular exam (No neurovascular deficit) Neuro: ANDREWS COMA SCALE: document GCS findings Andrews coma scale eye opening: Spontaneous Lincoln coma scale verbal response: Orientated Lincoln coma scale motor response: Obey commands Andrews coma scale total score: 15 COMMON NORMALS: patient oriented x3, CN's II-XII intact bilaterally, moves all extremities, no focal motor deficits, no sensory deficits noted and gait normal SENSORIUM/ORIENTATION: Yes alert, Yes oriented to person, Yes oriented to place and Yes oriented to time SPEECH: speech normal GAIT: Yes Normal gait present Skin: COMMON NORMALS: no rashes or lesions noted GENERAL SKIN EXAM: no rashes or lesions noted TRAUMA: no lacerations or abrasions Course Vital Signs: Vital signs: Vital Signs Temperature 98.4 F 07/09/23 13:31 Pulse Rate 65 07/09/23 13:57 Respiratory Rate 20 H 07/09/23 13:31 Blood Pressure 187/69 07/09/23 13:57 Pulse Oximetry 98 07/09/23 13:57 Oxygen Delivery Me thod Nasal Cannula 07/09/23 13:31 Oxygen Flow Rate 2 07/09/23 13:31 MDM - Fall Medical Decision Making Patient's head CT is negative. XR of her left knee is negative. Skin tears were cleaned and dressed appropriately. She is up-to-date on her tetanus. Patient will be allowed discharge at this time. Return ED precautions given. Discharge Plan Discharge Patient Disposition: Home Clinical Impression: Skin tear of right upper extremity Fall from slip, trip, or stumble Qualifiers: Encounter type: initial encounter Qualified Code(s): W01.0XXA - Fall on same level from slipping, tripping and stumbling without subsequent striking against object, initial encounter Contusion of left knee Qualifiers: Encounter type: initial encounter Qualified Code(s): S80.02XA - Contusion of left knee, initial encounter Minor head injury without loss of consciousness Qualifiers: Encounter type: initial encounter Qualified Code(s): S09.90XA - Unspecified injury of head, initial encounter Condition: Stable Prescriptions: No Action Januvia 100 mg tablet 100 mg PO DAILY ibuprofen 800 mg tablet 800 mg PO Q8H PRN (Reason: Pain) simvastatin 10 mg tablet 10 mg PO QPM aspirin [Adult Aspirin Regimen] 81 mg tablet,delayed release (DR/EC) 81 mg PO DAILY lisinopril 20 mg tablet 20 mg PO DAILY Qty: 90 3RF bumetanide 1 mg tablet 1 mg PO BID Qty: 180 3RF multivitamin Tablet 1 tab PO DAILY albuterol sulfate 2.5 mg /3 mL (0.083 %) solution for nebulization 2.5 mg inhalation Q6H PRN (Reason: Shortness Of Breath) ascorbic acid (vitamin C) [Vitamin C] 500 mg Tablet 500 mg PO DAILY Vitamin B-12 1 tab PO DAILY PreserVision AREDS-2 250-90-40-1 mg Capsule 1 tab PO BID metformin 850 mg tablet 850 mg PO BID azithromycin 250 mg tablet 250 mg PO DAILY fluticasone propion-salmeterol [Wixela Inhub] 500-50 mcg/dose blister with device 1 ea INHALATION DAILY Farxiga 5 mg tablet 5 mg PO DAILY Spiriva Respimat 1.25 mcg/actuation mist 2 puff INHALATION DAILY metoprolol succinate [Toprol XL] 25 mg tablet extended release 24 hr 25 mg PO DAILY Qty: 30 0RF elderberry fruit 350 mg Capsule 350 mg PO DAILY potassium chloride 10 mEq capsule, extended release 10 meq PO DAILY Trelegy Ellipta 200-62.5-25 mcg blister with device 1 inh INHALATION DAILY Discharge Orders: Discharge ED (Routine); Ordered 07/09/23 Ordered By: Nusrat Curry Referrals: Loretta Sommers PA-C [Primary Care Provider] - Patient Instructions: Contusion, Head Injury (DC), Skin Tear (ED) Coding Level of Care Code ED Insurance Business Analyst for Phillip Sierra
--- NOTE | 2023-07-09 14:32 | PC.PHAR ---
Addendum entered by Kylie Prieto 07/09/23 14:40: VERIFIED ALBUTEROL DRAGAN, AZITHROMYCIN 250 MG, BUMETANIDE 1 MG, IBUPROFEN 800 MG, TRELEGY ELLIPTA 200-62.5, POTASSIUM CHLORIDE ER 10 MEQ, JANUVIA 100MG, LISINOPRIL 20 MG, METFORMIN 850 MG, SIMVASTATIN 10 MG SPIRIVA RESPIMAT 1.25 AND TOPROL XL 25 MG..WITH [facility]. ALL OTHER OTC MEDS UNABLE TO VERIFY WITH PHARMACY STAFF. FARXIGA 5 MG ON HOLD DUE TO COST. Original Note: PT STATES NOTHING HAS CHANGED SINCE LAST VISIT 6 MONTHS AGO. I ATTEMPTED TO GO OVER MEDS AND SHE STATED SHE CAN NOT SAY YES OR NO TO ANYTHING I ASK AND ABSOLUTELY NOTHING HAS CHANGED. FAMILY MEMBER AGREED WITH PATIENT.
[2023-07-09 16:10] VITALS: BP 146/85; PULSE 68; O2SAT 98
== END 2023-07-09 16:01 | disposition home or self-care (01) ==
PROVIDERS: Emergency Provider Physician Assistant; PCP Physician Assistant
DX: S09.8XXA Other specified injuries of head, initial encounter (principal); S41.111A Laceration without foreign body of right upper arm, initial encounter; S80.02XA Contusion of left knee, initial encounter; W01.198A Fall on same level from slipping, tripping and stumbling with subsequent striking against other object, initial encounter; Y92.511 Restaurant or cafe as the place of occurrence of the external cause; Z79.82 Long term (current) use of aspirin; Z79.84 Long term (current) use of oral hypoglycemic drugs; I10 Essential (primary) hypertension; J44.9 Chronic obstructive pulmonary disease, unspecified; E11.9 Type 2 diabetes mellitus without complications; Z87.891 Personal history of nicotine dependence
CPT/HCPCS: 70450; 73562; 99284

== ENCOUNTER → 2023-12-16 14:02 | Outpatient (BNVA) | payer MEDICARE, SELFPAY | PROVIDERS: Visit Provider Internal Medicine | DX: R60.9 Edema, unspecified (principal); E11.9 Type 2 diabetes mellitus without complications; I10 Essential (primary) hypertension; Z87.891 Personal history of nicotine dependence; Z79.84 Long term (current) use of oral hypoglycemic drugs | CPT/HCPCS: 99214 ==

== ENCOUNTER → 2024-01-22 09:52 | Outpatient (BNVA) | payer MEDICARE, SELFPAY | PROVIDERS: PCP Physician Assistant; Visit Provider Nurse Practitioner Family | DX: I11.0 Hypertensive heart disease with heart failure (principal); I50.32 Chronic diastolic (congestive) heart failure; Z87.891 Personal history of nicotine dependence | CPT/HCPCS: 36415; 80053; 83880; 99214 ==

== ENCOUNTER 2024-03-28 12:24 | Emergency (ER) | payer MEDICARE, SELFPAY ==
[2024-03-28] VITALS (27 sets, daily range): BP systolic 107–178; BP diastolic 54–92; PULSE 70–86; RESP 7–23; TEMP 36.9; O2SAT 90–97
--- NOTE | 2024-03-28 12:45 | XRR_ITS ---
PROCEDURE INFORMATION: Exam: XR Chest Exam date and time: 03/28/2024 1:04 PM Age: 73 years old Clinical indication: Shortness of breath; Additional info: SOB TECHNIQUE: Imaging protocol: Radiologic exam of the chest. Views: 1 view. COMPARISON: CR XR chest 1V portable [id number] 04/03/2023 2:20 PM FINDINGS: Lungs: Questionable left basilar hazy opacity is unchanged from 03/18/2022 and is favored to be projectional/artifactual. No large focal consolidation. Pleural spaces: No distinct pneumothorax. Heart/Mediastinum: Cardiomediastinal silhouette is midline and stable in size. Bones/joints: Degenerative changes of the [id number]-left shoulders. XR/XR chest 1V portable [id number] IMPRESSION: No acute cardiopulmonary findings.
[2024-03-28 13:08] LABS: Basophils # 0.1 10^3/uL (0.0-0.1); Basophils % 0.6 %; Eosinophils # 0.2 10^3/uL (0.0-0.8); Eosinophils % 2.4 %; Lymphocytes # 0.6 10^3/uL (0.8-4.8); Lymphocytes % 7.5 %; Mean Corpuscular HGB Conc 31.8 g/dL (30-55); Mean Corpuscular Hemoglobin 31.8 pg (27-33); Mean Platelet Volume 11.1 fL (7.4-10.4); Monocytes # 1.1 10^3/uL (0.2-0.9); Monocytes % 13.4 %; Neutrophils # 5.98 10^3/uL (1.8-7.7); Neutrophils % 75.8 %; Nucleated Red Blood Cells % 0 %; Platelet Count 170 10^3/cmm (157-399); Red Cell Distribution Width 13.2 % (12.1-15.1); White Blood Count 7.89 10^3/uL (3.29-11.43)
[2024-03-28] MEDS: FUROsemide 10 mg/mL SDV 10mL 60 MG IVP (13:12)
[2024-03-28 13:35] LABS: Anion Gap 13.9 (5-19); Blood Urea Nitrogen 22 mg/dL (8-23); Calcium 9.5 mg/dL (8.5-10.5); Carbon Dioxide 30 mmol/L (22-29); Chloride 97 mmol/L (98-107); Glucose 175 mg/dL (65-115); NT Pro B Type Natriuretic Pept 240 pg/mL (0-450); Osmolality Calculated 292 mOsm/kg (285-295); Potassium 3.9 mmol/L (3.5-5.1); Sodium 137 mmol/L (136-145)
[2024-03-28 13:37] LABS: Creatinine Clr Calc Pharmacy 55.5364
--- NOTE | 2024-03-28 15:33 | ED_ITS ---
HPI - SOB/Dyspnea 2 General: Chief Complaint: Shortness of Breath/Dyspnea Stated Complaint: MAME PEDAL EDEMA Time Seen by Provider: 03/28/24 12:44 Source: patient Limitations: no limitations History of Present Illness: HPI Narrative: Patient was noted to increase shortness of breath, has been having some pedal edema build up the past couple days and then today noticed that she had increased her oxygen to 6 L because on 4 L she was going between 91 and 88%. Patient ports that she also has not been urinating as much with her Bumex. She also reports a recent COPD flare that started before this problem. Review of Systems 2 General: Reports: 10 or more systems reviewed and unremarkable except in HPI and below PFSH ED 2 PFSH: Medical History Cellulitis of left knee COPD (chronic obstructive pulmonary disease) Benign essential HTN Type 2 diabetes mellitus Family History Other Cancer Social History Smoking and tobacco/nicotine status: former use of tobacco/nicotine Quit status (tobacco/nicotine): has quit using Alcohol intake: current Alcohol intake frequency: holidays/special occasions only Substance/Drug Use: never Current gender identity: Female Physical Exam 2 Const: COMMON NORMALS: no acute distress, average body habitus, patient oriented x3, healthy appearing, alert and well nourished GENERAL APPEARANCE: well kempt and well developed HENMT: COMMON NORMALS: normocephalic, atraumatic, external ears normal and moist oral mucous membranes HEAD & SCALP: normocephalic and atraumatic E XTERNAL EAR: Yes external ears normal Eye: COMMON NORMALS: Equal, round and reactive pupils present, EOMs intact bilaterally and conjunctivae normal CONJUNCTIVA: Yes conjunctivae normal P UPIL: Yes Equal, round and reactive pupils present Neck/C-Spine: COMMON NORMALS: full ROM, no lymphadenopathy and supple Chest: CHEST: Yes Symmetrical chest wall rise and No Surgical scars present (Chest) Resp: COMMON NORMALS: normal respiratory effort, No retractions and No use of accessory muscles AUSCULTATION: rales bilateral (wet rales) at the base and in the lower lung javed Cardio: COMMON NORMALS: regular rate, regular rhythm, S1 normal heart sound present, S2 normal heart sound present, No gallops present (Cardio), No clicks present (Cardio), No murmurs present (Cardio) and No rub (Cardio) JUGULAR VENOUS DISTENTION: JVD (Not quite at the angle of the jaw on the right) RATE: regular rate RHYTHM: regular rhythm HEART SOUNDS: S1 normal heart sound present, S2 normal heart sound present and no murmurs PERIPHERAL PULSES: o ther (Radial pulses 2+ and symmetric) GI: COMMON NORMALS: Soft to palpation, non-tender and no masses INSPECTION: No abdominal distension PALPATION: Yes Soft to palpation, No Guarding due to palpation present (GI) and No Rebound tenderness present : COMMON NORMALS: Yes no CVA tenderness BLADDER/KIDNEY EXAM: Yes no CVA tenderness Back/Pelvis: COMMON NORMALS: no CVA tenderness Extremity: COMMON NORMALS: normal to inspection, full ROM, capillary refill normal and no clubbing, cyanosis or edema Neuro: COMMON NORMALS: patient oriented x3 SENSORIUM/ORIENTATION: Yes alert Psych: APPEARANCE: Yes well kempt Skin: COMMON NORMALS: no rashes or lesions noted, no wounds, turgor normal and no jaundice GENERAL SKIN EXAM: no rashes or lesions noted and turgor normal Course 2 Reevaluation(s): Reevaluation #1: much improved. ok with discharge. Time: 15:39 Vital Signs: Vital signs: Vital Signs Temperature 98.5 F 03/28/24 12:32 Pulse Rate 75 03/28/24 14:50 Respiratory Rate 13 03/28/24 14:45 Blood Pressure 107/92 03/28/24 14:50 Pulse Oximetry 96 03/28/24 14:50 Oxygen Delivery Me thod Nasal Cannula 03/28/24 12:32 Oxygen Flow Rate 4 03/28/24 12:32 MDM - SOB/Dyspnea Medical Decision Making Patient was in for increased O2 requirement at home. She is on 4L O2 at baseline but was slowly decreasing to 89 to 88%. Increased to 6 L due to this. Also noticing that she is having pedal edema again that been fairly well- controlled to at least not have the redness. Patient was given 60 of IV Lasix and had multiple urinations and went from a 91% sat on 4 L to a 95% O2 sat on 4 L. Patient feels improved and is ready for discharge. Patient understands to continue her Bumex starting tonight. Differential Diagnosis Likely acute exacerbation of chronic obstructive airways disease, congestive heart failure and community acquired pneumonia Medical Records I reviewed the patient's medical records. Lab Data I reviewed the patient's lab results. 03/28/24 13:04 03/28/24 13:04 Labs/Radiology: Radiology Impressions Chest X-Ray 03/28/24 12:45 IMPRESSION: No acute cardiopulmonary findings. Laboratory Results WBC 7.89 10^3/uL (3.29-11.43) 03/28/24 13:04 RBC 4.40 10^6/uL (3.85-5.65) 03/28/24 13:04 Hgb 14.00 g/dL (11.27-16.99) 03/28/24 13:04 Hct 44.0 % (36-47) 03/28/24 13:04 MCV 100.0 fl (85-98) H 03/28/24 13:04 MCH 31.8 pg (27-33) 03/28/24 13:04 MCHC 31.8 g/dL (30-55) 03/28/24 13:04 RDW 13.2 % (12.1-15.1) 03/28/24 13:04 Plt Count 170 10^3/cmm (157-399) 03/28/24 13:04 MPV 11.1 fL (7.4-10.4) H 03/28/24 13:04 Neut % (Auto) 75.8 % 03/28/24 13:04 Lymph % (Auto) 7.5 % 03/28/24 13:04 Chase % (Auto) 13.4 % 03/28/24 13:04 Eos % (Auto) 2.4 % 03/28/24 13:04 Baso % (Auto) 0.6 % 03/28/24 13:04 Neut # (Auto) 5.98 10^3/uL (1.8-7.7) 03/28/24 13:04 Lymph # (Auto) 0.6 10^3/uL (0.8-4.8) L 03/28/24 13:04 Chase # (Auto) 1.1 10^3/uL (0.2-0.9) H 03/28/24 13:04 Eos # (Auto) 0.2 10^3/uL (0.0-0.8) 03/28/24 13:04 Baso # (Auto) 0.1 10^3/uL (0.0-0.1) 03/28/24 13:04 Nucleated RBC % (auto) 0 % 03/28/24 13:04 Nucleated RBCs # 0.0 /100WBC 03/28/24 13:04 Sodium 137 mmol/L (136-145) 03/28/24 13:04 Potassium 3.9 mmol/L (3.5-5.1) 03/28/24 13:04 Chloride 97 mmol/L (98-107) L 03/28/24 13:04 Carbon Dioxide 30 mmol/L (22-29) H 03/28/24 13:04 Anion Gap 13.9 (5-19) 03/28/24 13:04 BUN 22 mg/dL (8-23) 03/28/24 13:04 Creatinine 1.0 mg/dL (0.5-0.9) H 03/28/24 13:04 GFR Calculation Not Reportable 03/28/24 13:04 Glucose 175 mg/dL (65-115) H 03/28/24 13:04 Calculated Osmolality 292 mOsm/kg (285-295) 03/28/24 13:04 Calcium 9.5 mg/dL (8.5-10.5) 03/28/24 13:04 NT-Pro-B Natriuret Pep 240 pg/mL (0-450) 03/28/24 13:04 All radiology interpretation(s) finalized by discharge Discharge Plan Discharge Patient Disposition: Home Clinical Impression: CHF exacerbation, Acute on chronic respiratory failure with hypoxia Condition: Stable Prescriptions: No Action Januvia 100 mg tablet 100 mg PO DAILY ibuprofen 800 mg tablet 800 mg PO Q8H PRN (Reason: Pain) simvastatin 10 mg tablet 10 mg PO QPM aspirin [Adult Aspirin Regimen] 81 mg tablet,delayed release (DR/EC) 81 mg PO DAILY bumetanide 1 mg tablet 1 mg PO BID Qty: 180 3RF multivitamin Tablet 1 tab PO DAILY albuterol sulfate 2.5 mg /3 mL (0.083 %) solution for nebulization 2.5 mg inhalation TID ascorbic acid (vitamin C) [Vitamin C] 500 mg Tablet 500 mg PO DAILY Vitamin B-12 1 tab PO DAILY PreserVision AREDS-2 250-90-40-1 mg Capsule 1 tab PO BID metformin 850 mg tablet 850 mg PO DAILY fluticasone propion-salmeterol [Wixela Inhub] 500-50 mcg/dose blister with device 1 ea INHALATION BID dapagliflozin propanediol [Farxiga] 5 mg tablet 5 mg PO DAILY Spiriva Respimat 1.25 mcg/actuation mist 2 puff INHALATION DAILY metoprolol succinate [Toprol XL] 25 mg tablet extended release 24 hr 25 mg PO DAILY Qty: 30 0RF elderberry fruit 350 mg Capsule 350 mg PO DAILY glimepiride 1 mg tablet 1 mg PO QAM albuterol sulfate 90 mcg/actuation Hfa Aerosol Inhaler 2 puff INHALATION Q6H PRN (Reason: Shortness Of Breath Or Wheezing) lisinopril 40 mg tablet 40 mg PO DAILY Discharge Orders: Discharge ED (Routine); Ordered 03/28/24 Ordered By: Aneesh Isaacs Referrals: Loretta Sommers PA-C [Primary Care Provider] - Discharge Diet: Usual diet and Low Salt Discharge Activity: Resume usual activity Patient Instructions: Low-Sodium Diet (ED) Activity Restrictions/Additional Instructions: Follow-up with primary care or cardiology within 1 week. Coding Level of Care Code ED Wax Cutter for Phillip Sierra
== END 2024-03-28 16:49 | disposition home or self-care (01) ==
PROVIDERS: Emergency Provider Emergency Medicine; PCP Physician Assistant
DX: I11.0 Hypertensive heart disease with heart failure (principal); I50.9 Heart failure, unspecified; J96.21 Acute and chronic respiratory failure with hypoxia; Z79.82 Long term (current) use of aspirin; Z79.84 Long term (current) use of oral hypoglycemic drugs; J44.9 Chronic obstructive pulmonary disease, unspecified; E11.9 Type 2 diabetes mellitus without complications; Z87.891 Personal history of nicotine dependence
CPT/HCPCS: 36415; 71045; 80048; 83880; 85025; 96374; 99284; J1940

== ENCOUNTER 2024-06-10 10:51 | Outpatient (CLI) | payer MEDICARE, SELFPAY ==
--- NOTE | 2024-06-10 10:56 | CT_ITS ---
WS: [id number] CT chest wo con [id number] HISTORY: CHRONIC RESPIRATORY FAILURE WITH HYPOXIA TECHNIQUE: Axial imaging performed through the thorax. Coronal and sagittal reformats are submitted. All CT scans at [facility] use at least one of these dose optimization techniques: automated exposure control; mA and/or kV adjustment per patient size (includes targeted exams where dose is mat ched to clinical indication); or iterative reconstruction. CONTRAST: None DLP: 820.71 mGy.cm COMPARISON: Radiograph 03/28/2024, CT 03/17/2022 Lungs and central airway: Lung volumes are slightly decreased. Poor inspiratory effort. Mild dependen t changes and a few bilateral lower lobe areas of subsegmental platelike atelectasis. No mass. No pne umonia. Pleura: Normal. No pleural effusion. Heart and pericardium: Mild cardiomegaly. Mediastinum and kenyatta: Hilar regions are poorly visualized to exclude adenopathy without IV contrast. Vessels: Mildly enlarged pulmonary artery. Atherosclerosis aorta. Chest wall and lower neck: No soft tissue masses. Upper abdomen: Hepatic steatosis. Cholelithiasis without acute cholecystitis. Small hiatal hernia. Osseous structures: No destructive process. CT/CT chest wo con [id number] IMPRESSION: 1. No pneumonia. 2. Mild pulmonary artery enlargement. Suggest 6 pulmonary hypertension. 3. Cholelithiasis without acute cholecystitis. 4. Hepatic steatosis. 5. Mild cardiomegaly.
== END 2024-06-10 10:52 | disposition home or self-care (01) ==
LOC: RAD 10:54
PROVIDERS: PCP Physician Assistant; Visit Provider Internal Medicine
DX: J96.11 Chronic respiratory failure with hypoxia (principal); J44.9 Chronic obstructive pulmonary disease, unspecified; J98.11 Atelectasis; I51.7 Cardiomegaly; K80.20 Calculus of gallbladder without cholecystitis without obstruction; K44.9 Diaphragmatic hernia without obstruction or gangrene
CPT/HCPCS: 71250

== ENCOUNTER 2024-06-10 11:17 | Outpatient (CLI) | payer MEDICARE, SELFPAY ==
[2024-06-10 12:15] LABS: Anion Gap 12.1 (5-19); Blood Urea Nitrogen 26 mg/dL (8-23); Calcium 9.5 mg/dL (8.5-10.5); Carbon Dioxide 33 mmol/L (22-29); Chloride 98 mmol/L (98-107); Glucose 245 mg/dL (65-115); NT Pro B Type Natriuretic Pept 204 pg/mL (0-450); Osmolality Calculated 301 mOsm/kg (285-295); Potassium 4.1 mmol/L (3.5-5.1); Sodium 139 mmol/L (136-145)
== END 2024-06-10 11:18 | disposition home or self-care (01) ==
LOC: LAB 11:18
PROVIDERS: PCP Physician Assistant; Visit Provider Internal Medicine
DX: I50.9 Heart failure, unspecified (principal); I10 Essential (primary) hypertension
CPT/HCPCS: 36415; 80048; 83880

== ENCOUNTER → 2024-06-15 14:31 | Outpatient (BNVA) | payer MEDICARE, SELFPAY | PROVIDERS: PCP Physician Assistant; Visit Provider Internal Medicine | DX: R60.9 Edema, unspecified (principal); E11.9 Type 2 diabetes mellitus without complications; Z79.84 Long term (current) use of oral hypoglycemic drugs; I10 Essential (primary) hypertension; Z87.891 Personal history of nicotine dependence | CPT/HCPCS: 99214 ==

== ENCOUNTER 2025-10-14 04:31 | Emergency (ER) | payer MEDICARE, SELFPAY ==
--- OUTSIDE RECORDS SUMMARY | 2016-10-02 14:15 | XMS_ITS | Continuity of Care Document ---
Author Organization [facility] Address [address] [place] [address] Phone Care Team Providers Care Nursing Home Physician Name Role Phone Lizzeth KATZ, Katia Unavailable Unavailable Allergies, Adverse Reactions, Alerts Substance Reaction Status Criticality codeine uncertain Active No Information Medications Medication Instructions Dosage Effective Dates (start - stop) Status Comments Advair Diskus 500 mcg-50 mcg/dose powder for inhalation inhale 1 puff by inhalation route 2 times every day in the morning and evening approximately 12 hours apart 1.00 puff - Active Januvia 100 mg tablet TAKE 1 TABLET BY ORAL ROUTE EVERY DAY - Active BENAZEPRIL/HCTZ 20/25MG TABLETS TAKE 1 TABLET BY MOUTH DAILY - Active ibuprofen 800 mg tablet ONE PO BID WITH FOOD - Active metformin 500 mg tablet TAKE 1 TABLET BY ORAL ROUTE 2 TIMES EVERY DAY WITH MORNING AND EVENING MEALS 500 MG - Active VENTOLIN HFA INH W/DOS CTR 200PUFFS INHALE 1-2 PUFFS BY MOUTH EVERY 4-6 HOURS NEEDED - Active One Touch Ultra System Kit use twice daily - Active One Touch Ultra Test strips use bid - Active One Touch UltraSoft Lancets use bid - Active Procedures Procedure Date Destrct Of Benign Lesions; Up To 14 Lesi ons Offic/outpt E&m Estab Low-mod 6 Bx Skin/subq Tiss (sep Pro); 1 16 Offic/outpt E&m Estab Mod-hi 2 16 Offic/outpt E&m Estab Low-mod 5 Offic/outpt E&m Estab Mod-hi 2 15 PFT/Spirogram Offic/outpt E&m Estab Mod-hi 2 15 Offic/outpt E&m Estab Mod-hi 2 15 Offic/outpt E&m Estab Mod-hi 2 15 Offic/outpt E&m Estab Low-mod 5 Destruction 1 Lesion, Any Method 2014 Destruction Lesions 2 -14, Any Method Ja Offic/outpt E&m Estab Low-mod 4 Zoster (shingle) Vaccine, Live 14 Immuniz Admin; 1/combo Vacc/to 14 TDAP Vaccine >7 IM Immuniz Admin; 1/combo Vacc/to 14 Pneumococcal Polysacch Vac-adult Or Immu nosuppressed Dose Immuniz Admin; 2/> Sing/comb V 14 PFT/Spirogram Preven Med Estab Pt; 65+ Nebulizer/Inhalation Treatment 14 Offic/outpt E&m Estab Mod-hi 2 14 Offic/outpt E&m Estab Mod-hi 2 14 Offic/outpt E&m Estab Low-mod 4 Destrct Of Benign Lesions; Up To 14 Lesi ons Offic/outpt E&m Estab Minor 10 14 Nebulizer/Inhalation Treatment 14 Offic/outpt E&m Estab Mod-hi 4 14 Offic/outpt E&m Estab Mod-hi 2 14 Office Exam - Brief Specimen Handling Fee Office Exam - Limited Well Visit (40-64) Office Exam - Limited Office Exam - Limited EKG Offic Cons New/estab Mod-hi 60 08 Preven Meds E&m Estab Pt; 40-64 008 Handl/convey Specmn-offic To L 08 Offic/outpt E&m Estab Low-mod 8 Advance Directives Directive Yes / No Effective Date File Name No Information Encounters Encounter Description Practice Location Reason(s) For Visit Diagnoses Date Provider Providers Copied on Encounter [facility], [address], [place], [place], [address] , [place] tel: [phone] [facility] CM No Information 6 Lizzeth Montalvo. Retired, [place], [place], [address], [place]. tel:[phone] [facility], [facility] [address], [place], [place], [address] , [place] tel: [phone] [facility] IR Encounter for screening for malignant neoplasm of colon 6 Navi Coelho. [address], [address], [place], [place], [address], [place]. tel:[phone] [facility], [address], [place], [place], [address] , [place] tel: [phone] [facility] IR No Information 6 Navi Coelho. [address], [address], [place], [place], [address], [place]. tel:[phone] [facility], [address], [place], [place], [address] , [place] tel: [phone] [facility] IR No Information 6 Kelle Braga. [address], [address], [place], [place], [address], [place]. tel:[phone] [facility], [address], [place], [place], [address] , [place] tel: [phone] [facility] IR No Information 3 6 Omel PA-C Maria Luz. [address] [facility], [place], [place], [address], [place]. tel: [phone] Offic/outpt E&m Estab Low-mod [facility], [address], [place], [place], [address] , [place] tel: [phone] [facility] IR LN (chief complaint) AK (actinic keratosis) 6-201 6 Omel PA-C Maria Luz. [address], [address], [place], [place], [address], [place]. tel: [phone] Offic/outpt E&m Estab Mod-hi 2 [facility], [address], [place], [place], [address] , [place] tel: [phone] [facility] IR LN on arms and skin check on back (chief complaint) AK (actinic keratosis)Chroni c obstructive pulmonary disease, unspecifiedOth diabetes mellitus with other specified complicationMorb id (severe) obesity due to excess caloriesNeoplasm of uncertain behavior of skin 2 6 Omel PA-C Maria Luz. [address], [address], [place], [place], [address], [place]. tel: [phone] [facility], [address], [place], [place], [address] , [place] tel: [phone] [facility] CM Encounter for exam of eyes and vision w/o abnormal findings 5 Beryl Clayton. [address] [place], [address], [place]. tel:[phone] Offic/outpt E&m Estab Low-mod [facility], [address], [place], [place], [address] , [place] tel: [phone] [facility] IR skin check- LN (chief complaint) Oth diabetes mellitus with other specified complicationAK (actinic keratosis) 5 Omel PA-C Maria Luz. [address] [facility], [place], [place], [address], [place]. tel:[phone] Offic/outpt E&m Estab Mod-hi 2 [facility], [address], [place], [place], [address] , [place] tel: [phone] [facility] IR Cough (chief complaint) Chronic obstructive pulmonary disease, unspecifiedMorbi d (severe) obesity due to excess caloriesOther specified diabetes mellitus with other specified complicationCoug h Nov-0 3-201 5 Navi Coelho. [address], [address], [place], [place], [address], [place]. tel:[phone] Offic/outpt E&m Estab Mod-hi 2 [facility], [address], [place], [place], [address] , [place] tel: [phone] [facility] IR cough not better (chief complaint) AIRWAY OBSTRUCTION, CHRONIC UNSPDiabetes With Other Specified Manifestations/T ype II Or Unspecified Type May-0 6-201 5 Omel PA-C Maria Luz. [address], [address], [place], [place], [address], [place]. tel:[phone] [facility], [address], [place], [place], [address] , [place] tel: [phone] [facility] IR Diabetes With Other Specified Manifestations/T ype II Or Unspecified Type Fernie-2 9-201 5 Omel PA-C Maria Luz. [address], [address], [place], [place], [address], [place]. tel:[phone] Referring Provider: Maria Luz CONTRERAS-Zunilda, [address], [address], [place], [address] . tel:[phone] Offic/outpt E&m Estab Mod-hi 2 [facility], [address], [place], [place], [address] , tel: [phone] [facility] IR Cough (chief complaint) AIRWAY OBSTRUCTION, CHRONIC UNSPCough Fernie-0 5-201 5 Omel PA-C Maria Luz. [address] [facility], [place], [place], [address], [place]. tel:[phone] Referring Provider: Maria Luz Nina PA-C, [address], [place], [address] . tel:[phone] Offic/outpt E&m Estab Mod-hi 2 [facility], [address], [place], [place], [address] , [place] tel: [phone] [facility] IR left knee cramping, skin check (chief complaint) OBESITY,MORBIDAI RWAY OBSTRUCTION, CHRONIC UNSPDiabetes With Other Specified Manifestations/T ype II Or Unspecified TypeAK (actinic keratosis)Unspec ified essential hypertension Feb- 5 Omel PA-C Maria Luz. [address] [facility], [address], [place]. tel:[phone] Offic/outpt E&m Estab Low-mod [facility], [address], [place], [place], [address] , [place] tel: [phone] [facility] IR mole check (chief complaint)leg cramping (chief complaint) AK (actinic keratosis)Leg crampingKERATOSI S, SEBORRHEIC, OTHER 5 Omel PA-C Maria Luz. [address] [facility], [place], [place], [address], [place]. tel:[phone] Offic/outpt E&m Estab Low-mod [facility], [address], [place], [place], [address] , [place] tel: [phone] [facility] IR Follow up on lab test(s) (chief complaint) Diabetes With Other Specified Manifestations/T ype II Or Unspecified TypeUnspecified essential hypertension 4 Omel PA-C Maria Luz. [address] [facility], [address], [place]. tel:[phone] [facility], [address], [place], [address] , tel: [phone] [facility] IR Impaired fasting glucoseDiabetes With Other Specified Manifestations/T ype II Or Unspecified Type 4 Omeesthela Braga. [address] [facility] [address], [address], [place]. tel:[phone] Referring Provider: Meliton Mcelroy MD, [address], [address], [address] . tel:[phone] [facility], [address], [place], [place], [address] , tel: [phone] [facility] IR Shingles vaccine ok per DR. Mcelroy (chief complaint) OTHER VIRAL DISEASES 4 Navi Coelho. [address], [address] [place] [address], [id number], [place]. tel:[phone] Referring Provider: Meliton Mcelroy MD, [address], [address], [place], [address] . tel:[phone] [facility], [address], [place], [place], [address] , tel: [phone] [facility] IR Tdap & Pneumo vaccine (chief complaint) VACCINE FOR DTP, DTaPPneumonia Vaccine 4 Navi Coelho. [address] [facility] [place] [place] [address], [id number], [place]. tel:[phone] Referring Provider: Meliton Mcelroy MD, [address], [address] [place] [address], [address] . tel:[phone] Preven Med Estab Pt; 65+ [facility], [address], [place], [address] , tel: [phone] [facility] IR WWE* (chief complaint) Routine gynecological examinationDiabe liseth With Other Specified Manifestations/T ypeHYPERTENSION, ESSENTIAL UNSPECOBESITY UNSPECIFIEDNicot ine abuseSkin lesion of faceCOPD (chronic obstructive pulmonary disease) 4 Omeesthela Braga. [address], [address], [place], [place], [address], [place]. tel:[phone] Offic/outpt E&m Estab Mod-hi 2 [facility], [address], [place], [place], [address] , tel:[phone] [facility] IR medication review (chief complaint)con tinues with a profuctive cough (chief complaint) CoughBronchitis 4 Omeesthela Braga. [address], [address], [place], [place], [address], [place]. tel:[phone] Referring Provider: Maria Luz Nina PA-C, [facility], [address], [place], [address] . tel:[phone] Offic/outpt E&m Estab Mod-hi 2 [facility], [address], [place], [place], [address] , [place] tel:[phone] [facility] IR follow up on lab test(s) (chief complaint) Type II diabetes mellitus, uncontrolledType II diabetes mellitus with manifestationsOb esity, Morbid Jan- 4 Navi Coelho. [address], [address], [place], [place], [address], [place]. tel:[phone] Referring Provider: Meliton Mcelroy MD, [address], [address], [place], [address] . tel:[phone] [facility], [address], [place], [place], [address] , tel:[phone] [facility] IR Type II diabetes mellitus, uncontrolledType II diabetes mellitus with manifestationsOb esity, morbid 4 Navi Coelho. [address], [address], [place], [place], [address], [place]. tel:[phone] Referring Provider: Maria Luz Nina PA-C, [address] [facility], [place], [address] . tel:[phone] Offic/outpt E&m Estab Low-mod [facility], [address], [place], [place], [address] , tel: [phone] [facility] IR moles neck and lesion forehead (chief complaint) AK (actinic keratosis) 4 Kelle Braga. [address] [facility], [place], [place], [address], [place]. tel:[phone] Referring Provider: Maria Luz Nina PA-C, [address], [address], [place], [address] . tel:[phone] [facility], [address], [place], [place], [address] , [place] tel: [phone] [facility] IR No Information 4 Navi Coelho. [address], [address], [place], [place], [address], [place]. tel:[phone] Offic/outpt E&m Estab Minor 10 [facility], [address], [place], [place], [address] , [place] tel: [phone] [facility] IR Cold Sxs x 1 week (chief complaint) Cough Dec-0 4 Amy Oconnor. [address], [address], [place]. tel:[phone] Offic/outpt E&m Estab Mod-hi 4 [facility], [address], [place], [place], [address] , [place] tel: [phone] [facility] IR follow up Dry cough- not improving (chief complaint)fev er x last night (chief complaint)jeovanny betes (chief complaint) HYPERTENSION, ESSENTIAL UNSPECOBESITY UNSPECIFIEDType II diabetes mellitus, uncontrolledType II diabetes mellitus with manifestationsDy slipidemia (high LDL; low HDL)UPPER RESPIRATORY INFECTION 4 Navi Coelho. [address], [address], [place], [place], [address], [place]. tel:[phone] Referring Provider: Meliton Mcelroy MD, [address], [address], [place], [address] . tel:[phone] Offic/outpt E&m Estab Mod-hi 2 [facility], [address], [place], [place], [address] , [place] tel:[phone] [facility] IR cough x1mo (chief complaint)sin us x1week (chief complaint) CoughIrregular heartbeatIMPAIRE D FASTING GLUCOSEHTNTobacc o use disorderPVCs (premature ventricular contractions) 4 Amy Oconnor. [address] [place] [address], [address], [place]. tel:[phone] Referring Provider: Anastasia Reyes PA-C, [address] [place] [address], [address]. tel:[phone] Office Exam - Brief [facility], [address], [address] , [place] tel: [phone] [facility] WW hypertension (chief complaint) CELLULITIS & ABSCESS OTH SPEC SI 2 Kelle Braga. [address], [place], [place], [address], [place]. [phone] Referring Provider: Maria Luz Nina PA-C, [address], [address], [place], [address] . tel:[phone] Office Exam - Limited [facility], [address], [place], [place], [address] , [place] tel:[phone] [facility] WW well woman (chief complaint) HYPERTENSION, ESSENTIAL UNSPECHYPERTENSI ON, ESSENTIAL UNSPECIMPAIRED FASTING GLUCOSEOBESITY UNSPECIFIED Oct-0 8-201 0 Omel PA-C Maria Luz. [address], [address], [place], [place], [address], . [phone] Referring Provider: Maria Luz Nina PA-C, [address] [facility], [place], [address] . tel:[phone] Office Exam - Limited [facility], [address], [place], [place], [address] , tel: [phone] [facility] WW st (chief complaint) OTITIS MEDIA, UNSPEC Aug- 9-200 9 Omel PA-C Maria Luz. [address], [address], [place], [place], [address], [place]. tel:[phone] Referring Provider: Maria Luz Nina PA-C, [address], [address], [place], [address] . tel:[phone] Office Exam - Limited [facility], [address], [address] , tel: [phone] Meliton Mcelroy MD cough (chief complaint) Bronchitis, Acute Jan- 0-200 9 Omel PA-C Maria Luz. [address], [address], [place], [place], [address], [place]. tel:[phone] Offic Cons New/estab Mod-hi 60 [facility], [address], [address] , tel: [phone] Meliton Mcelroy MD preoperative evaluation (chief complaint) IMPAIRED FASTING GLUCOSELARYNGITI S, ACUTE W/O OBSTRUCTLARYNX 2-200 8 Navi Coelho. [address], [address], [address], [place]. tel:[phone] [facility], [address], [place], [address] , [place] tel: [phone] Mleiton Mcelroy MD IMPAIRED FASTING GLUCOSE 8 Omel TOMY Braga. [address], [address], [address], . tel: [phone] Preven Meds E&m Estab Pt; 40-64 [facility], [address], [place], [place], [address] , tel: [phone] Meliton Mcelroy MD well women (chief complaint) HYPERTENSION, ESSENTIAL UNSPECOBESITY UNSPECIFIEDHYPER TENSION, ESSENTIAL UNSPECOBESITY UNSPECIFIED 8 Omel TOMY Braga. [address], [address], [address], . tel: [phone] Offic/outpt E&m Estab Low-mod [facility], [address], [place], [place], [address] , tel: [phone] Meliton Mcelroy MD cough (chief complaint) HYPERTENSION, ESSENTIAL UNSPECUPPER RESPIRATORY INFECTION 8 Navi Coelho. [address], [address], [address], . tel:[phone] Family History Family Member Type Diagnosis Age At Onset Mother Problem (finding) breast cancer Immunizations Vaccine Date Status Comments Zoster administered Source: New Imm unization Record Tdap (Adacel r) administered Source: New Immunization Record Pneumo (2 yrs or older)(PPV) administered Source: New Immunization Record Payers Payer name Insurance type Covered alliance party ID Authoriza tion(s) [facility] Senior HMO ([facility]) CI [id number] Social History Type Description Quantity Date Captured Comments Sex Female Smoking Status No Information Chief Complaint And Reason For Visit No Information Reason For Referral Reason For Referral No Information Plan Of Treatment Date Type Action Status Referral Ordered: Arturo Hou MD -Pulmonology (related to Chronic obstructive pulmonary disease, unspecified) ordered Referral Ordered: Rosemarie Eduadro MD -Gastroenterology (related to Encounter for general adult medical examination without abnormal findings) ordered Referral Referred To: Arturo Hou MD [address] [place] [address]
[address] [place], [place], [id number] Ordered: Referrals: Pulmonology. Arturo Hou MD. Evaluate and treat ordered Referral Ordered: Mammogram; Screening, Bilateral ordered Referral Referred To: Rosemarie Eduardo MD [address] [facility].
[address] [place], [place], [id number] Ordered: Referrals: Gastroenterology. Rosemarie Eduardo MD. Evaluate and treat ordered Referral Ordered: Nate Hernandez DO (related to Skin lesion of face) ordered Referral Ordered: Rosemarie Eduardo MD (related to Routine gynecological examination) ordered Referral Referred To: Nate Hernandez DO [address] [facility] [phone] Ordered: Referral: Nate Hernandez DO. Dermatology. Evaluate and treat. ordered Referral Referred To: Rosemarie Eduardo MD [address] [facility]. [place] [phone] Ordered: Referral: Rosemarie Eduardo MD. Gastroenterology. Evaluate and treat. ordered Referral Ordered: Screening Mammogram W/Tomosynthesis (3D Mammo) ordered Referral Ordered: Xray Chest 2 Views ordered Referral Ordered: Diabetes Educ. Erik (related to Type II diabetes mellitus with manifestations) ordered Referral Referred To: Diabetes Educ. Erik [address], [address] [place] [id number] [facility]dered: [facility]. Evaluate and treat. ordered Referral Ordered: Xray Chest Complete 2 Views ordered Future Order: Lab Order Occult B lood, [place], [place] ([id number]), Sent on: Sent Future Order: Lab Order HEMOGLOB IN A1C ([id number]), Sent on: Sent Future Order: Lab Order LIPID PA CHEY ([id number]), Sent on: Sent Future Order: Lab Order CMP ([id number]), Sent on: Sent Future Order: Radiology Order Ma mmogram; Screening, Bilateral ([id number]), Added on: New Future Order: Radiology Order Xr ay Chest 2 Views ([id number]), Added on: New Future Order: Radiology Order Xr ay Chest 2 Views ([id number]), Added on: New Future Order: Lab Order HEMOGLOB IN A1C ([id number]), Sent on: Sent Future Order: Lab Order CMP ([id number] ), Sent on: Sent Future Order: Lab Order HEMOGLOB IN A1C ([id number]), Sent on: Sent Future Order: Lab Order Microalb umin/Creatinine Ratio ([id number]), Sent on: Sent Future Order: Lab Order LIPID PA CHEY ([id number]), Sent on: Sent Future Order: Lab Order CMP ([id number]), Sent on: Sent Future Order: Lab Order HEMOGLOB IN A1C ([id number]), Sent on: Sent Future Order: Lab Order Microalb umin/Creatinine Ratio ([id number]), Sent on: Sent Future Order: Lab Order LIPID PA CHEY ([id number]), Sent on: Sent Future Order: Lab Order LIVER PA CHEY ([id number]), Sent on: Sent Future Order: Lab Order BMP ([id number]), Sent on: Sent History Of Present Illness Encounter Date Complaint History Of Prese nt Illness LN LN (comments) Pt. is here for liquid nitrogen treatment on her right arm. Lesion was biopsied 3/2/16 and determined to be an actinic keratosis. Pt. denies bleeding, erythema, swelling. LN on arms and skin check on back (comments) Pt here lesion on right arms and to get general labs pt is movin in [place] in february. also lesion left arm and back. pt is being followed by pulm for cpod breathing improved with advair. pt denies sob. dm well controlled. pt has been taking meds daily LN on arms and skin check on cristy k skin check- LN skin check- LN (comments) Pt her e for skin check. Pt has multiple lesion on arm fac legs chest . pt doing well with diet and is trying to loose weight. Cough Onset: 5 days ag o. Severity: moderate. The patient describes the cough as moist, persistent and productive (of clear sputum). It occurs persistently. The problem has become gradually worse. Context: COPD and smoker. Symptoms are aggravated by exercise, exertion, fumes and lying down. There are no relieving factors. Associated symptoms include chills, cough, dyspnea on exertion, fatigue, fever and night sweats. cough not better cough not better (comments) pt w ith chronic cough worse in am and pm clear phelgm. pt restarted inhaler. pt denies fever chills. pt is still smoking Cough Onset: 1 week ag o. The patient describes the cough as moist and productive (of yellow sputum). It occurs persistently. Cough (comments) pt here for cou gh congestion sob for the past past week. pt has not been using the symbicort everyday left knee cramping, skin check (comments) pt with left leg knee pain now better. pt desire slesion on face and back removed. Pt admit to not loosin more weigth and not eating as well. Pt denies chest pain sob cough is stable and pt is still smoking. left knee cramping, skin check leg cramping mole check mole check (comments) pt has les ion on nose left chest upper and cheek. Pt states she has notcied more leg cramping at night. pt has been working weight loss diet and exercise Follow up on lab test(s) Follow up on lab test(s) (donnell benito) pt here for labs review. pt has been working diet exercise weight loss. pt denies chest pain palpitations Shingles vaccine ok per DR. Mcelroy Tdap & Pneumo vaccine WWE* (comments) Pt here for wwe. pt states she has been having diarrhea abd pain since starting metformin. pt also is smoking 1 pack for 20 years chronic cough and sputum. pt states inhalers helped with the cough . WWE* medication review (comments) pt here for cough productive the last 4 days. pt has quit smoking for one week. pt smokes 1/3 pack ppd for 40 years. pt admit to some sob, pt states ore throat is much better. pt does feel better with abx. medication review continues with a profuctive phuong luu follow up on lab test(s) pt yoanna hankinsnot good enough yetincreasing dose of metformin moles neck and lesio n forehead (comments) Pt here for lesion on right neck right forehead scaling brown and left side if neck. Pt has been attending dm classes and working on weight loss. moles neck and lesion forehead Cold Sxs x 1 week Pt here to f/u on cough. Pt states since starting zpack has been feeling somewhat better but now cough has loosened up and is producing a lot of mucus. Cough is non stop and cannot sleep at night. Even w/ stronger cough syrup, can only sleep for 2 hrs at a time, well elevated. Last fever/chills were 1-2 days ago. No chest tightness/SOB. +coughing fits. No LE edema. follow up Dry cough- not improvi ng as abovelow grade fever todayfelt better fever x last night diabetes cough x1mo Pt has not been here in >[address] Oropeza due to ins change but has switched back. He did not do labs for pt but was rxing bp med so pt is still on it. Pt has had cough, congestion, episodes of sweating x 1 week. Admits to some fatigue and mild achiness. No SOB. Pt admits that she has had a cough x 6 mo now that has been mild. Pt still smoking few times a week. Pt denies any chest pain, states she has occasional tingling in chest. No palpitations. sinus x1week hypertension pt has been out of bp pills for 4 days. pt denies chest pain sob, polyuria chnage in vision. pt has not had blood work with any other dr in last 4 years. pt c/o of mass on chest tender pt has been touching freq well woman st pt here c/o st n mariel congestion cough snisu pressure for 3 weeks . pt desires abx. cough pt c/o of cough congestion for one month and nasal congetsion.pt states is quiting smoking next week. preoperative evaluation well women cough Functional Status Date Functional Assessmen t No Information Instructions Date Instruction Additional Infor miles LN tx done. Related to AK (a ctinic keratosis) improving continue weigth loss R elated to Morbid (severe) obesity due to excess calories stable continue meds lab slip gi joy Related to Oth diabetes mellitus with other specified complication cotninue advair stab le and cotninue with pulm Related to Chronic obstructive pulmonary disease, unspecified ln tx done Related to AK (a ctinic keratosis) 1. Pt tolerated proc edure well minimal blood loss.2. Baindage applied.3. BX sent for pathology4. Pt to hear results within 5-7 days. Pt instructed if they do not get the results to call the office.5. Pt instructed of signs and sxs of infection. Pt to fu immediately. Pt understands Related to Neoplasm of uncertain behavior of skin LN tx and fu if sxs persist Rela tk to AK (actinic keratosis) continue meds and labs for rehce ck Related to Oth diabetes mellitus with other specified complication cough medscxr Related to Cough as above. to get opt ometry eval next week Related to Other specified diabetes mellitus with other specified complication pt realizes what she has to do. Related to Morbid (severe) obesity due to excess calories change inhaler to ad vair 500/50pulmonologist asapcxr today Related to Chronic obstructive pulmonary disease, unspecified Pt aware of the risk s of chronic lung dx, lung cancer, increased risk of stroke and heart attack. Pt advised to quit. pt to continue symbicort and chest xray ordered. pt advised to follow up [facility] if cough worsens or sob occurs Related to AIRWAY OBSTRUCTION, CHRONIC UNSP continue meds pt phuc ires to pay for januvia and not to start glipizide Related to Diabetes With Other Specified Manifestations/Type II Or Unspecified Type continue symbicort t wice a day, and rx abx and oral steroids follow up emerson if cough worsens or sob of fever occurs. Related to AIRWAY OBSTRUCTION, CHRONIC UNSP continue meds. stable Related to Unspecified essential hypertension pt continue to work on weight lo ss Related to OBESITY,MORBID stable continue inhalers Related to AIRWAY OBSTRUCTION, CHRONIC UNSP LN Related to AK (a ctinic keratosis) increase hydration , fu if sxs persist Related to Leg cramping Ln t x done fu in 3 weeks. Relat ed to AK (actinic keratosis) ln tx fu if sxs persist Related to KERATOSIS, SEBORRHEIC, OTHER labs reviewed contin ue meds and continue diet and exercise Related to Diabetes With Other Specified Manifestations/Type II Or Unspecified Type improved continue meds Related t o Unspecified essential hypertension Nutritional counseling provided Related to Obesity Physical activity co unseling provided Related to Obesity Nutritional counseling provided Related to Obesity Physical activity co unseling provided Related to Obesity Assessments Type Assessment Date No Information Patient Care Teams Name Effective Dates (start - stop) Status Members No Information
--- NOTE | 2025-10-14 04:33 | ED_ITS ---
HPI - General Adult 2 General: Chief complaint: Extremity Problem,Nontraumatic Stated complaint: left leg swelling Time Seen by Provider: 10/14/25 04:32 History of Present Illness: 75-year-old female presents to the [facility] ency room complaining of left leg swelling mild anterior redness on the left lower leg. No fever sweats chills no drainage from the wound has a history of gout. Congestive heart failure and has chronic edema of the lower extremities not significantly changed from her baseline. No shortness of breath no fever sweats or chills Associated symptoms: Deny chest pain, dyspnea or rash Related Data Home Medications ?Medication ?Instructions ?Recorded ?Confirmed ibuprofen 800 mg tablet 800 mg PO Q8H PRN Pain 06/2606/15/24 sitagliptin phosphate 100 mg 100 mg PO DAILY 06/26/20 06/15/24 tablet (Januvia) aspirin 81 mg tablet,delayed 81 mg PO DAILY 11/27/21 0 06/15/24 release (Adult Aspirin Regimen) simvastatin 10 mg tablet 10 mg PO QPM 11/27/21 Vitamin B-12 1 tab PO DAILY 01/22/2205/19 albuterol sulfate 2.5 mg/3 mL 2.5 mg inhalation TID 06/15/24 (0.083 %) solution for nebulization ascorbic acid (vitamin C) 500 mg 500 mg PO DAILY 01/2206/15/24 tablet (Vitamin C) multivitamin 1 tab PO DAILY 01/22/2205/19 vit C 250 mg-vit E 90 mg-zinc 40 1 tab PO BID 03/17/22 06/15/24 mg-copper 1 [id number] capsule (PreserVision AREDS-2) dapagliflozin propanediol 5 mg 5 mg PO DAILY 04/03/23 06/15/24 tablet (Farxiga) fluticasone 500 mcg-salmeterol 50 1 ea inhalation BID 04/03/23 06/15/24 mcg/dose blistr powdr for inhalation (Wixela Inhub) tiotropium bromide 1.25 2 puff inhalation DAILY 03/1806/15/24 mcg/actuation mist for inhalation (Spiriva Respimat) elderberry fruit 350 mg capsule 350 mg PO DAILY 06/15/24 albuterol sulfate 90 mcg/actuation 2 puff inhalation Q 6H PRN 03/28/24 06/15/24 aerosol inhaler Shortness Of Breath Or Wheez ing glimepiride 1 mg tablet 1 mg PO QAM 03/28/24 4 lisinopril 40 mg tablet 40 mg PO DAILY 03/28/2405/19 metformin 500 mg tablet 500 mg PO BID 04/01/25 Previous Rx's ?Medication ?Instructions ?Recorded metoprolol succinate 25 mg 25 mg PO DAILY #30 tabs tablet,extended release 24 hr (Toprol XL) amlodipine 10 mg tablet 10 mg PO DAILY #90 tabs 03/18 05/12 bumetanide 1 mg tablet 2 mg (2 x 1 mg) PO BID #360 tabs 10/04/25 cephalexin 500 mg tablet 500 mg PO TID 7 days #21 tab s 10/14/25 Allergies Allergy/AdvReac Type Severity Reaction Status Date / Time No Known Allergies Allergy Verified 06/15/24 15:11 Review of Systems 2 Const: Denies: fever(s) or chills Card: Denies: chest pain Resp: Denies: dyspnea GI: Denies: abdominal pain : Denies: dysuria, urinary frequency or urinary urgency Musc: Denies: neck pain or back pain Skin/Breast: Denies: rash PFSH ED 2 PFSH: Medical History Cellulitis of left knee COPD (chronic obstructive pulmonary disease) Benign essential HTN Type 2 diabetes mellitus Family History Other Cancer Social History Smoking and tobacco/nicotine status: former use of tobacco/nicotine Quit status (tobacco/nicotine): has quit using Alcohol intake: current Alcohol intake frequency: holidays/special occasions only Substance/Drug Use: never Current gender identity: Female Physical Exam 2 Const: GENERAL APPEARANCE: cooperative ORIENTATION/CONSCIOUSNESS: Yes awake, Yes oriented to person, Yes oriented to place and Yes oriented to time HENMT: COMMON NORMALS: normocephalic, atraumatic and hearing grossly normal bilaterally HEAD & SCALP: normocephalic and atraumatic Resp: COMMON NORMALS: normal respiratory effort, No retractions, No use of accessory muscles and clear to auscultation bilaterally AUSCULTATION: clear to auscultation bilaterally Cardio: COMMON NORMALS: regular rate, regular rhythm and No murmurs present (Cardio) RATE: regular rate RHYTHM: regular rhythm GI: COMMON NORMALS: Soft to palpation and No hepatosplenomegaly present A USCULTATION: Yes normoactive bowel sounds PALPATION: Yes Soft to palpation, No Tenderness to palpation present (GI), No Guarding due to palpation present (GI) and Yes No hepatosplenomegaly present Extremity: COMMON NORMALS: normal to inspection, capillary refill normal, no clubbing, cyanosis or edema, no calf tenderness and no pedal edema Neuro: SENSORIUM/ORIENTATION: Yes oriented to person, Yes oriented to place and Yes oriented to time Skin: OTHER: Mild induration and slight redness of the skin in the left anterior tibia Course 2 Vital Signs: Vital signs: Vital Signs Temperature 98 F 10/14/25 04:50 Pulse Rate 80 10/14/25 04:50 Respiratory Rate 20 H 10/14/25 04:50 Blood Pressure 197/80 10/14/25 04:50 Pulse Oximetry 98 10/14/25 04:50 Oxygen Delivery Me thod Nasal Cannula 10/14/25 04:50 Oxygen Flow Rate 5 10/14/25 04:50 MDM - General Adult Medical Decision Making Medical decision making Social determinants: Patient has social support arrives at the visit alone but does have friends and family who are coming to bring her home. I reviewed the patient's medical record. I reviewed the patient's current home meds Alternate historians: None Differential diagnosis localized cellulitis/DVT/congestive heart failure Lab Review: Labs reviewed no clinically relevant findings with no emergent findings Imaging: None Assessment of risk: Level of risk: Low Hospitalization considerations: No emergent condition hospitalization not considered Reexamination: No findings suggestive of DVT she has no negative Homans no significant increase in swelling in her lower extremities or lungs relatively clear no sign of decompensated congestive heart failure on exam. She has no leukocytosis she does have a mild induration of the Assessment and plan: Patient wishes to go home no emergent findings. Will treat for cellulitis as an outpatient. Medical Records I reviewed the patient's medical records. Lab Data I reviewed the patient's lab results. 10/14/25 04:44 10/14/25 04:44 Laboratory Results WBC 7.83 10^3/uL (3.29-11.43) 10/14/25 04:44 RBC 4.36 10^6/uL (3.85-5.65) 10/14/25 04:44 Hgb 13.60 g/dL (11.27-16.99) 10/14/25 04:44 Hct 42.2 % (36-47) 10/14/25 04:44 MCV 96.8 fl (85-98) 10/14/25 04:44 MCH 31.2 pg (27-33) 10/14/25 04:44 MCHC 32.2 g/dL (30-55) 10/14/25 04:44 RDW 12.9 % (12.1-15.1) 10/14/25 04:44 Plt Count 212 10^3/cmm (157-399) 10/14/25 04:44 MPV 10.9 fL (7.4-10.4) H 10/14/25 04:44 Neut % (Auto) 60.0 % 10/14/25 04:44 Lymph % (Auto) 19.2 % 10/14/25 04:44 [place] % (Auto) 14.7 % 10/14/25 04:44 Eos % (Auto) 4.5 % 10/14/25 04:44 Baso % (Auto) 1.0 % 10/14/25 04:44 Neut # (Auto) 4.70 10^3/uL (1.8-7.7) 10/14/25 04:44 Lymph # (Auto) 1.5 10^3/uL (0.8-4.8) 10/14/25 04:44 [place] # (Auto) 1.2 10^3/uL (0.2-0.9) H 10/14/25 04:44 Eos # (Auto) 0.4 10^3/uL (0.0-0.8) 10/14/25 04:44 Baso # (Auto) 0.1 10^3/uL (0.0-0.1) 10/14/25 04:44 Nucleated RBC % (auto) 0 % 10/14/25 04:44 Nucleated RBCs # 0.0 /100WBC 10/14/25 04:44 Sodium 139 mmol/L (136-145) 10/14/25 04:44 Potassium 3.7 mmol/L (3.5-5.1) 10/14/25 04:44 Chloride 96 mmol/L (98-107) L 10/14/25 04:44 Carbon Dioxide 32 mmol/L (22-29) H 10/14/25 04:44 Anion Gap 14.7 (5-19) 10/14/25 04:44 BUN 24 mg/dL (8-23) H 10/14/25 04:44 Creatinine 1.0 mg/dL (0.5-0.9) H 10/14/25 04:44 GFR Calculation Not Reportable 10/14/25 04:44 Glucose 228 mg/dL (65-115) H 10/14/25 04:44 Calculated Osmolality 299 mOsm/kg (285-295) H 10/14/25 04:44 Lactic Acid 1.3 mmol/L (0.5-2.2) 10/14/25 04:44 Calcium 9.7 mg/dL (8.5-10.5) 10/14/25 04:44 Total Bilirubin 0.4 mg/dL (0.15-1.2) 10/14/25 04:44 AST 18 U/L (0-32) 10/14/25 04:44 ALT 24 U/L (0-33) 10/14/25 04:44 Alkaline Phosphatase 123 U/L (35-105) H 10/14/25 04:44 Total Protein 7.3 g/dL (6.6-8.7) 10/14/25 04:44 Albumin 4.0 g/dL (3.5-5.2) 10/14/25 04:44 Globulin 3.3 g/dL (1.3-4.6) 10/14/25 04:44 No radiology studies performed this visit Discharge Plan Discharge Patient Disposition: Home Clinical Impression: Cellulitis of left lower extremity, Type 2 diabetes mellitus Condition: Stable Prescriptions: New cephalexin 500 mg tablet 500 mg PO TID 7 Days Qty: 21 0RF No Action Januvia 100 mg tablet 100 mg PO DAILY ibuprofen 800 mg tablet 800 mg PO Q8H PRN (Reason: Pain) simvastatin 10 mg tablet 10 mg PO QPM aspirin [Adult Aspirin Regimen] 81 mg tablet,delayed release (DR/EC) 81 mg PO DAILY metformin 500 mg tablet 500 mg PO BID amlodipine 10 mg tablet 10 mg PO DAILY Qty: 90 3RF bumetanide 1 mg tablet 2 mg PO BID Qty: 360 0RF Rx Instructions: MUST MAKE APPOINTMENT AND BE SEEN FOR FURTHER REFILLS multivitamin Tablet 1 tab PO DAILY albuterol sulfate 2.5 mg /3 mL (0.083 %) solution for nebulization 2.5 mg inhalation TID ascorbic acid (vitamin C) [Vitamin C] 500 mg Tablet 500 mg PO DAILY Vitamin B-12 1 tab PO DAILY PreserVision AREDS-2 250-90-40-1 mg Capsule 1 tab PO BID fluticasone propion-salmeterol [Wixela Inhub] 500-50 mcg/dose blister with device 1 ea INHALATION BID dapagliflozin propanediol [Farxiga] 5 mg tablet 5 mg PO DAILY Spiriva Respimat 1.25 mcg/actuation mist 2 puff INHALATION DAILY metoprolol succinate [Toprol XL] 25 mg tablet extended release 24 hr 25 mg PO DAILY Qty: 30 0RF elderberry fruit 350 mg Capsule 350 mg PO DAILY glimepiride 1 mg tablet 1 mg PO QAM albuterol sulfate 90 mcg/actuation Hfa Aerosol Inhaler 2 puff INHALATION Q6H PRN (Reason: Shortness Of Breath Or Wheezing) lisinopril 40 mg tablet 40 mg PO DAILY Discharge Orders: Discharge ED (Routine); Ordered 10/14/25 Ordered By: Gary Khan Referrals: Loretta Sommers PA-C [Primary Care Provider, Unknown] Discharge Diet: Usual diet Discharge Activity: Increase activity as tolerated Patient Instructions: Opioid Safety, Pain Management, Patient Portal & Dov Instructions Activity Restrictions/Additional Instructions: Thank you for choosing [facility] for your healthcare needs today. It is very important that you follow up as instructed or that you return to the Emergency Department should you have concerns or if your condition changes or worsens in any way. Emergency department visits are focused on emergent conditions, in some cases you may require further evaluation on an outpatient basis. You are seen emergency room complaint of redness to the left lower leg. Your white count was normal on exam it does appear there is a mild superficial cellulitis. You are given initial dose of antibiotics here and a prescription was sent in 1 pill 3 times a day for 7 days. Follow-up with your primary care doctor if not improving (Please note that included in your discharge packet is information concerning opioid safety and pain management. This information is given to all patients were discharged from the ER regardless of their discharge diagnosis or the medicines they usually take or are prescribed.) Print Language: Kazakh Coding Level of Care Code ED Health Communications Specialist for Phillip Sierra
--- OUTSIDE RECORDS SUMMARY | 2025-10-14 04:37 | XMS_ITS | Clinical Summary ---
Author Organization [facility] [place] Address [address] [place] [address] Phone Care Team Providers Care Processor Inspector Name Role Phone Unavailable Primary Care Provider Unavailabl e Social History Tobacco Use Types Packs/Day Years Used Date Smoking Tobacco: Never Assessed Comments Unknown Sex and Gender Information Value Date Recorded Sex Assigned at Not on file Legal Sex Female 7:56 AM CDT Gender Identity Not on file Sexual Orientation Not on file Plan of Treatment Health Maintenance Due Date Last Done Comments DTAP/TDAP/TD VACCINES (1 - Tdap) 1967 PNEUMOCOCCAL VACCINE 50+ YEARS (1 of 1 - PCV) 10/12/19 98 ZOSTER VACCINE (1 of 2) 1998 OSTEOPOROSIS SCREENING 2013 RSV VACCINE (60+ or ) (1 - 1-dose 75+ series) 2023 INFLUENZA VACCINE (#1) 2025 Insurance [address] [place] [address] [facility] [id number]
[2025-10-14 04:42] VITALS: BP 197/80; PULSE 80; RESP 20; TEMP 36.6; O2SAT 98; BMI 50.1
[2025-10-14 04:49] LABS: Hematocrit 42.2 % (36-47); Hemoglobin 13.60 g/dL (11.27-16.99); Mean Corpuscular HGB Conc 32.2 g/dL (30-55); Mean Corpuscular Hemoglobin 31.2 pg (27-33); Mean Corpuscular Volume 96.8 fl (85-98); Nucleated Red Blood Cells % 0 %; Platelet Count 212 10^3/cmm (157-399); Red Blood Count 4.36 10^6/uL (3.85-5.65); White Blood Count 7.83 10^3/uL (3.29-11.43)
[2025-10-14 04:50] VITALS: BP 197/80; PULSE 80; RESP 20; TEMP 36.6; O2SAT 98
[2025-10-14 05:05] LABS: Alanine Aminotransferase 24 U/L (0-33); Albumin Level 4.0 g/dL (3.5-5.2); Alkaline Phosphatase 123 U/L (35-105); Anion Gap 14.7 (5-19); Aspartate Amino Transferase 18 U/L (0-32); Blood Urea Nitrogen 24 mg/dL (8-23); Calcium 9.7 mg/dL (8.5-10.5); Carbon Dioxide 32 mmol/L (22-29); Chloride 96 mmol/L (98-107); Globulin 3.3 g/dL (1.3-4.6); Glucose 228 mg/dL (65-115); Osmolality Calculated 299 mOsm/kg (285-295); Potassium 3.7 mmol/L (3.5-5.1); Sodium 139 mmol/L (136-145); Total Protein 7.3 g/dL (6.6-8.7)
[2025-10-14 05:06] LABS: Lactic Sepsis W/Reflex 1.3 mmol/L (0.5-2.2)
[2025-10-14] MEDS: cephALEXin 250 mg/5 mL 100mL Bulk 750 MG PO (06:19)
== END 2025-10-14 06:39 | disposition home or self-care (01) ==
PROVIDERS: Emergency Provider Family Medicine; PCP Physician Assistant
DX: L03.116 Cellulitis of left lower limb (principal); E11.9 Type 2 diabetes mellitus without complications; Z79.82 Long term (current) use of aspirin; Z79.84 Long term (current) use of oral hypoglycemic drugs; Z87.891 Personal history of nicotine dependence; J44.9 Chronic obstructive pulmonary disease, unspecified; I11.0 Hypertensive heart disease with heart failure; I50.9 Heart failure, unspecified
CPT/HCPCS: 36415; 80053; 83605; 85025; 87040; 99283; J9999